=== PATIENT | female | born 1995 | race Caucasian/White ===

== ENCOUNTER 2017-08-30 17:53 | Emergency (ER) | payer OTHER ==
[2017-08-30 18:02] VITALS: BP 142/76; PULSE 97; TEMP 97.6; BMI 27.4
--- NOTE | 2017-08-30 18:03 | PDOC ---
Rapid Medical Evaluation Chief Complaint: Pain, Acute Time Seen by Provider: 08/30/17 18:00 Medical Evaluation: Allergies Allergy/AdvReac Type Severity Reaction Status Date / Time peanut Allergy Verified 04/10/17 20:35 08/30/17 18:02 The patient presents with a chief complaint of: R knee pain since tuesday after bumping it against furniture. States it hurts to walk and is swollen I have performed a brief in-person evaluation of this patient; Pertinent physical exam findings: ambulatory, in no respiratory distress. TTP R knee I have ordered the following: nothing The patient will proceed to the ED for further evaluation.
[2017-08-30] MEDS ORDERED: IBUPROFEN 600 MG TABLET (FP) PO ONE ×2 (18:23→18:32)
--- NOTE | 2017-08-30 18:32 | PDOC ---
History of Present Illness - General Chief Complaint: Pain, Acute Stated Complaint: KNEE INJURY Time Seen by Provider: 08/30/17 18:00 History Source: Patient Exam Limitations: No Limitations - History of Present Illness Initial Comments: 08/30/17 18:25 This is a 22-year-old woman with past medical history of asthma who presents emergency Department with right knee pain for 3 days status post striking her knee on a wooden table. Patient states she was visiting family when she stepped into a sunken porch and struck her knee on the corner of a wooden table immediately below the kneecap. Patient has been walking without difficulty for the past 3 days and has taken Motrin one dose which has not relieved the pain. Patient denies fevers, chills, numbness or tingling to the leg, abdominal pain, chest pain or shortness of breath. Past History - Past Medical History Allergies/Adverse Reactions: Allergies Allergy/AdvReac Type Severity Reaction Status Date / Time peanut Allergy Verified 08/30/17 18:02 Home Medications: Ambulatory Orders NK [No Known Home Medication] 02/07/16 Asthma: Yes COPD: No Other medical history: Eczema - Surgical History Appendectomy: Yes - Immunization History Immunization Up to Date: Yes - Suicide/Smoking/Psychosocial Hx Smoking History: Never smoked Have you smoked in the past 12 months: No Information on smoking cessation initiated: No Hx Alcohol Use: No Drug/Substance Use Hx: No Substance Use Type: None, Marijuana Review of Systems - Review of Systems Able to Perform ROS?: Yes Is the patient limited German proficient: No Constitutional: No: Symptoms Reported HEENTM: No: Symptoms Reported Respiratory: No: Symptoms reported Cardiac (ROS): No: Symptoms Reported ABD/GI: No: Symptoms Reported : No: Symptoms Reported Musculoskeletal: Yes: See HPI Integumentary: No: Symptoms Reported Neurological: No: Symptoms reported *Physical Exam - Vital Signs Last Vital Signs Temp Pulse Resp BP Pulse Ox 97.6 F 97 H 17 142/76 98 08/30/17 18:00 08/30/17 18:00 08/30/17 18:00 08/30/17 18:00 08/30/17 18:00 - Physical Exam General Appearance: Yes: Appropriately Dressed. No: Apparent Distress HEENT: positive: Normal ENT Inspection Neck: positive: Trachea midline, Supple Respiratory/Chest: positive: Lungs Clear, Normal Breath Sounds. negative: Respiratory Distress, Accessory Muscle Use Cardiovascular: positive: Regular Rhythm, Regular Rate. negative: Murmur Vascular Pulses: Dorsalis-Pedis (R): 2+, Doralis-Pedis (L): 2+ Gastrointestinal/Abdominal: positive: Soft. negative: Tender Musculoskeletal: positive: Normal Inspection Extremity: positive: Normal Capillary Refill, Normal Inspection. negative: Normal Range of Motion (Decreased range of motion secondary to pain with flexion of right knee) Integumentary: positive: Normal Color, Dry, Warm Neurologic: positive: Alert, Normal Response, Motor Strength 5/5 ED Treatment Course - RADIOLOGY Radiology Studies Ordered: Category Date Time Status KNEE 3 POS-RIGHT [RAD] Stat Radiology 08/30/17 18:23 Ordered Medical Decision Making - Medical Decision Making 08/30/17 18:29 A/P: 22-year-old female history of asthma now with right knee pain status post direct blow to her of wooden table. Increased pain with flexion of the right knee. Examiner able to fully range right knee. No deformity or crepitus palpated. Patient able to fully extend right knee without difficulty. Tender to palpation to the infrapatellar aspect of the anterior right knee Negative anterior drawer sign Soft tissue injury versus patellar fracture Motrin 600 mg now, x-rays, reassess 08/30/17 19:12 X-rays without fracture, subluxation or dislocation. I discussed the physical exam findings, ancillary test results and final diagnoses with the patient. I answered all of the patient's questions. The patient was satisfied with the care received and felt comfortable with the discharge plan and treatment plan. The patient will call her doctor within 96 hours to arrange follow-up and will return to the Emergency Department with any new, persistent or worsening symptoms. *DC/Admit/Observation/Transfer Diagnosis at time of Disposition: Knee pain, right Qualifiers: Chronicity: acute Qualified Code(s): M25.561 - Pain in right knee - Discharge Dispostion Disposition: HOME Condition at time of disposition: Stable Admit: No - Referrals Referrals: Earl Victor MD [Staff Physician] - - Patient Instructions Additional Instructions: Take Tylenol or Motrin as needed for pain. Follow manufacturers instructions for appropriate dosage. Try not to walk or bear weight on your right knee as much as possible for the next 3 days. Apply ice for 20 minutes and removed for at least 20 minutes before reapplying the ice. You've been given the number for an orthopedist. If symptoms do not resolve within the next 7 days call the orthopedist for further evaluation. Return to emergency department for discoloration of the foot, numbness or tingling to the foot, worsening pain, or any other concerns. Thank you very much for choosing us to provide your emergent healthcare needs. - Post Discharge Activity
== END 2017-08-30 19:33 | disposition home or self-care (01) ==
LOC: JERFT 17:53
DX: M25.561 Pain in right knee (principal); W22.03XA Walked into furniture, initial encounter; Y93.89 Activity, other specified; Y92.098 Other place in other non-institutional residence as the place of occurrence of the external cause; Y99.8 Other external cause status
CPT/HCPCS: 73562-TC-RT-FY; 99281-25

== ENCOUNTER 2018-04-16 16:03 | Emergency (ER) | payer OTHER ==
[2018-04-16 16:08] VITALS: BP 118/61; PULSE 87; TEMP 98.8; BMI 32.9
[2018-04-16] MEDS ORDERED: SODIUM CHLORIDE 1,000 ML IV STA (16:32)
[2018-04-16] MEDS ORDERED: METOCLOPRAMIDE HCL INJECTION 10 MG/2 ML VIAL IVPB ONE (16:33)
[2018-04-16] MEDS ORDERED: KETOROLAC TROMETHAMINE 15 MG/ML VIAL IVPUSH ONE (16:34)
[2018-04-16] MEDS ORDERED: KETOROLAC TROMETHAMINE 15 MG/ML VIAL ONE (16:54)
[2018-04-16] MEDS ORDERED: METOCLOPRAMIDE HCL INJECTION 10 MG/2 ML VIAL ONE (16:54)
--- NOTE | 2018-04-16 18:37 | PDOC ---
History of Present Illness - General Chief Complaint: Headache Stated Complaint: HEAD PAIN Time Seen by Provider: 04/16/18 16:09 History Source: Patient Exam Limitations: No Limitations - History of Present Illness Initial Comments: 04/16/18 18:44 Patient is a 22-year-old female with no past medical history, who presents to the emergency department today for headache. Patient states that she has had a headache for the past 2 weeks. She states that the headache started after hitting her head against a windowsill. She states that the pain fluctuated. On 04/06/18, patient states that the pain became more intense. She was seen by her primary care doctor who ordered a head CT. Head CT was negative for bleeds, ischemia or mass at that time. She presents for reevaluation of her headache. Denies weakness to the extremities, visual changes, photophobia, phonophobia, gait changes. Past History - Travel Traveled outside of the country in the last 30 days: No Close contact w/someone who was outside of country & ill: No - Past Medical History Allergies/Adverse Reactions: Allergies Allergy/AdvReac Type Severity Reaction Status Date / Time peanut Allergy Verified 04/16/18 16:08 Home Medications: Ambulatory Orders Albuterol Sulfate Inhaler - [Ventolin HFA Inhaler -] 1 - 2 inh PO Q4H #1 inhaler 12/26/17 Ibuprofen 800 mg PO TID #30 tablet 04/16/18 Asthma: Yes COPD: No - Surgical History Appendectomy: Yes - Immunization History Immunization Up to Date: Yes - Suicide/Smoking/Psychosocial Hx Smoking History: Current some day smoker Have you smoked in the past 12 months: Yes Number of Cigarettes Smoked Daily: 0 Information on smoking cessation initiated: No Hx Alcohol Use: No Drug/Substance Use Hx: No Substance Use Type: None, Marijuana Review of Systems - Review of Systems Able to Perform ROS?: Yes Comments:: 04/16/18 18:42 CONSTITUTIONAL: Absent: fever, chills, diaphoresis, generalized weakness, malaise, loss of appetite HEENT: Absent: rhinorrhea, nasal congestion, throat pain, throat swelling, difficulty swallowing, mouth swelling, ear pain, eye pain, visual Changes CARDIOVASCULAR: Absent: chest pain, loss of consciousness, palpitations, irregular heart rate, peripheral edema RESPIRATORY: Absent: cough, shortness of breath, dyspnea with exertion, orthopnea, wheezing, stridor, hemoptysis GASTROINTESTINAL: Absent: abdominal pain, abdominal distension, nausea, vomiting, diarrhea, constipation, melena, hematochezia GENITOURINARY: Absent: dysuria, frequency, urgency, hesitancy, hematuria, flank pain, genital pain MUSCULOSKELETAL: Absent: myalgia, arthralgia, joint swelling SKIN: Absent: rash, itching, pallor NEUROLOGIC: Present: headache Absent: focal weakness or paresthesias, dizziness, unsteady gait, seizure, mental status changes, bladder or bowel incontinence PSYCHIATRIC: Absent: anxiety, depression, suicidal or homicidal ideation, hallucinations. Is the patient limited Indian proficient: No *Physical Exam - Vital Signs Last Vital Signs Temp Pulse Resp BP Pulse Ox 98.8 F 87 18 118/61 99 04/16/18 16:05 04/16/18 16:05 04/16/18 16:05 04/16/18 16:05 04/16/18 16:05 - Physical Exam Comments: 04/16/18 18:43 GENERAL: Well developed, well nourished. Awake and alert. No acute distress. HEENT: Normocephalic, atraumatic. PERRLA, EOMI. No conjunctival pallor. Sclera are non- icteric. Moist mucous membranes. Oropharynx is clear. NECK: Supple. Full ROM. No JVD. Carotid pulses 2+ and symmetric, without bruits. No thyromegaly. No lymphadenopathy. CARDIOVASCULAR: Regular rate and rhythm. No murmurs, rubs, or gallops. Distal pulses are 2+ and symmetric. PULMONARY: No evidence of respiratory distress. Lungs clear to auscultation bilaterally. No wheezing, rales or rhonchi. ABDOMINAL: Soft. Non-tender. Non-distended. No rebound or guarding. No organomegaly. Normoactive bowel sounds. MUSCULOSKELETAL Normal range of motion at all joints. No bony deformities or tenderness. No CVA tenderness. EXTREMITIES: No cyanosis. No clubbing. No edema. No calf tenderness. SKIN: Warm and dry. Normal capillary refill. No rashes. No jaundice. NEUROLOGICAL: Alert, awake, appropriate. Cranial nerves 2-12 intact. No deficits to light touch and temperature in face, upper extremities and lower extremities. No motor deficits in the in face, upper extremities and lower extremities. Normoreflexic in the upper and lower extremities. Normal speech. Toes are down- going bilaterally. Gait is normal without ataxia. PSYCHIATRIC: Cooperative. Good eye contact. Appropriate mood and affect. ED Treatment Course - Medications Given in the ED: ED Medications Discontinued Medications Generic Name Dose Route Start Last Admin Trade Name Miki PRN Reason Stop Dose Admin Diphenhydramine HCl 12.5 mg 04/16/18 16:33 04/16/18 17:08 Benadryl Injection - IVPUSH 04/16/18 16:34 12.5 mg ONCE ONE Administration Sodium Chloride 1,000 mls @ 1,000 mls/hr 04/16/18 16:32 04/16/18 16:57 Normal Saline - IV 04/16/18 17:31 1,000 mls/hr ASDIR STA Administration Ketorolac Tromethamine 15 mg 04/16/18 16:34 04/16/18 17:08 Toradol Injection - IVPUSH 04/16/18 16:35 15 mg ONCE ONE Administration Metoclopramide HCl 10 mg 04/16/18 16:33 04/16/18 16:57 Reglan Injection - IVPB 04/16/18 16:34 10 mg ONCE ONE Administration Medical Decision Making - Medical Decision Making 04/16/18 18:09 Pt is a 22 y/o F who presents with 4 days of gradually worsening headache -On exam, pt is neurologically intact with no focal deficits. -CT obtained 04/13/18 is negative for bleed, ischemia, or mass -Migraine vs concussion like symptoms, given hx of trauma two weeks ago -Pt states pain is completely gone with reglan, benadryl and toradol -DC home with neurology referral -Pt understands all dc instructions and all questions were answered. *DC/Admit/Observation/Transfer Diagnosis at time of Disposition: Headache Qualifiers: Headache type: unspecified Headache chronicity pattern: acute headache Intractability: not intractable Qualified Code(s): R51 - Headache - Discharge Dispostion Disposition: HOME Condition at time of disposition: Stable Decision to Admit order: No - Prescriptions Prescriptions: Ibuprofen 800 mg PO TID #30 tablet - Referrals Referrals: Raul Chow MD [Staff Physician] - - Patient Instructions Printed Discharge Instructions: DI for Headache Additional Instructions: You have a headache I suspect this is from hitting your head, you may have a concussion Please take the ibuprofen 800mg every 8 hours as needed for headache Avoid close work (reading, cellphone time) to let your brain recover Get plenty of sleep and drink plenty of fluids Follow up with neurology. A referral has been provided to you Return to the ED for worsening headache, unsteady walking, fevers, or if you have any changes in your symptoms - Post Discharge Activity Forms/Work/School Notes: Back to Work
== END 2018-04-16 19:00 | disposition home or self-care (01) ==
LOC: JERFT 16:03
PROC: 3E0337Z Introduction of Electrolytic and Water Balance Substance into Peripheral Vein, Percutaneous Approach (ICD-10-PCS; principal; 2018-04-16)
PROC: 3E033GC Introduction of Other Therapeutic Substance into Peripheral Vein, Percutaneous Approach (ICD-10-PCS; 2018-04-16)
PROC: 3E033GC Introduction of Other Therapeutic Substance into Peripheral Vein, Percutaneous Approach (ICD-10-PCS; 2018-04-16)
PROC: 3E0333Z Introduction of Anti-inflammatory into Peripheral Vein, Percutaneous Approach (ICD-10-PCS; 2018-04-16)
DX: R51 Headache (principal); Z87.09 Personal history of other diseases of the respiratory system; F17.210 Nicotine dependence, cigarettes, uncomplicated
CPT/HCPCS: 96361; 96374; 96375; 99281-25; J7030

== ENCOUNTER 2018-08-22 19:24 | Emergency (ER) | payer OTHER ==
[2018-08-22 19:42] VITALS: TEMP 98.8; BMI 29.2
[2018-08-22] MEDS ORDERED: IPRATROPIUM BR 0.02% 0.5 MG/2.5 ML VIAL.NEB. NEB ONE (19:45)
[2018-08-22] MEDS ORDERED: ALBUTEROL SO4 0.083% IH SOL 2.5 MG/3 ML VIAL.NEB. NEB ONE (19:45)
[2018-08-22] MEDS ORDERED: DEXAMETHASONE SOD PHOSPHATE 10 MG/1 ML VIAL ONE (19:45)
--- NOTE | 2018-08-22 22:13 | PDOC ---
Attending Attestation - Resident Resident Name: JaquanDionicio - ED Attending Attestation I have performed the following: I have examined & evaluated the patient, The case was reviewed & discussed with the resident, I agree w/resident's findings & plan, Exceptions are as noted - HPI HPI: 08/22/18 22:12 ate a brownie with peanut butter and developed ,tongue itchy Has known peanut allergy - Physicial Exam PE: 08/22/18 22:13 23 yo female has an allergic reaction to peanut butter head ncat Oral exam uvula midline, no edema neck supple lungs cta b/l cvs [id number] abd nontender ext no edema 'skin no hives neuro axox3,ambulatory - Medical Decision Making 08/22/18 22:15 pt is now stable after receiving duoneb and steroids imp peanut allergy plan RX for epi pen 08/22/18 23:30
--- NOTE | 2018-08-22 22:16 | PDOC ---
History of Present Illness - General Chief Complaint: Allergic Reaction Stated Complaint: ALLERGIC REACTION Time Seen by Provider: 08/22/18 21:38 History Source: Patient Exam Limitations: No Limitations - History of Present Illness Initial Comments: 08/22/18 22:51 23 yo F with a peanut allergy with previous anaphylaxis without requiring intubation or hospitalization presents to the emergency department s/p ingestion of a brownie with peanut butter at approximately 6:30 pm. Per the patient, she states she ate a brownie without knowing it contained peanut butter. immediately afterwards, she began experiencing throat itching and SOB. She was given decadron and duoneb, but did not require use of epinephrine. Currently, she feels back to baseline. Denies the following: fever, chills, nausea, vomiting, headache, ears/nose/throat pain, chest pain, SOB, abdominal pain, excessive tearing, urticaria, dysuria, hematuria, diarrhea, hematochezia, and leg pain/swelling. Meds: None Allergies: Peanuts, NKDA Social: Denies tobacco, alcohol, and substance abuse. Past History - Past Medical History Allergies/Adverse Reactions: Allergies Allergy/AdvReac Type Severity Reaction Status Date / Time peanut Allergy Verified 08/22/18 19:41 Home Medications: Ambulatory Orders Albuterol Sulfate Inhaler - [Ventolin HFA Inhaler -] 1 - 2 inh PO Q4H #1 inhaler 12/26/17 Ibuprofen 800 mg PO TID #30 tablet 04/16/18 Epinephrine [Epipen 2-Rubin] 0.3 mg IJ ASDIR #1 kit 08/22/18 Asthma: Yes COPD: No - Surgical History Appendectomy: Yes - Immunization History Immunization Up to Date: Yes - Suicide/Smoking/Psychosocial Hx Smoking History: Never smoked Have you smoked in the past 12 months: No Number of Cigarettes Smoked Daily: 0 Information on smoking cessation initiated: No Hx Alcohol Use: Yes (Social) Drug/Substance Use Hx: No Substance Use Type: None, Marijuana Review of Systems - Review of Systems Able to Perform ROS?: Yes Is the patient limited Paraguayan proficient: No Constitutional: No: Chills, Diaphoresis, Fever, Weakness HEENTM: No: Eye Pain, Ear Pain, Nose Pain, Throat Pain, Mouth Pain Respiratory: No: Cough, Shortness of Breath Cardiac (ROS): No: Chest Pain, Lightheadedness, Palpitations, Syncope, Chest Tightness ABD/GI: No: Constipated, Diarrhea, Nausea, Vomiting : No: Burning, Dysuria, Hematuria, Incontinence Musculoskeletal: No: Back Pain, Joint Pain, Neck Pain Integumentary: No: Bruising, Erythema, Lesions, Pruritus, Rash Neurological: No: Headache, Numbness, Tremors, Dizziness Psychiatric: No: Change in Appetite Endocrine: No: Unexplained Weight Gain Hematologic/Lymphatic: No: Anemia *Physical Exam - Vital Signs Last Vital Signs Temp Pulse Resp BP Pulse Ox 98.8 F 114 H 26 H 125/65 99 08/22/18 19:24 08/22/18 19:24 08/22/18 19:24 08/22/18 19:24 08/22/18 20:10 - Physical Exam General Appearance: Yes: Nourished, Appropriately Dressed. No: Apparent Distress, Intoxicated HEENT: positive: EOMI, DAR, Normal ENT Inspection, Normal Voice, Symmetrical, TMs Normal, Pharynx Normal, Hearing Grossly Normal. negative: Pale Conjunctivae , Scleral Icterus (R), Scleral Icterus (L), Muffled/Hoarse voice, Pharyngeal Erythema, Tonsillar Exudate, Tonsillar Erythema, Excessive drooling Neck: positive: Trachea midline, Supple. negative: Tender, Stridor, Lymphadenopathy (R), Lymphadenopathy (L), Tender lateral, Tender midline Respiratory/Chest: positive: Lungs Clear, Normal Breath Sounds. negative: Chest Tender, Respiratory Distress, Accessory Muscle Use, Crackles, Rales, Rhonchi, Stridor, Wheezing Cardiovascular: positive: Regular Rhythm, Regular Rate, S1, S2. negative: Systolic Murmur Gastrointestinal/Abdominal: positive: Normal Bowel Sounds, Flat, Soft. negative : Tender, Rebound Lymphatic: negative: Adenopathy Musculoskeletal: positive: Normal Inspection. negative: CVA Tenderness, Vertebral Tenderness Extremity: positive: Normal Capillary Refill, Normal Inspection, Normal Range of Motion. negative: Tender, Swelling, Calf Tenderness Integumentary: positive: Normal Color, Dry, Warm. negative: Hives, Petechiae, Swelling, Ecchymosis Neurologic: positive: director industrial II-XII NML intact, Fully Oriented, Alert, Normal Mood/ Affect, Normal Response, Motor Strength 5/5. negative: Facial Droop, Sensory Deficit Moderate Sedation - Procedure Monitoring Vital Signs: Procedure Monitoring Vital Signs Temperature 98.8 F 08/22/18 19:24 Pulse Rate 114 H 08/22/18 19:24 Respiratory Rate 26 H 08/22/18 19:24 Blood Pressure 125/65 08/22/18 19:24 O2 Sat by Pulse Oximetry (%) 99 08/22/18 20:10 Medical Decision Making - Medical Decision Making 08/23/18 10:19 23 yo F with a peanut allergy with previous anaphylaxis without requiring intubation or hospitalization presents to the emergency department s/p ingestion of a brownie with peanut butter at approximately 6:30 pm. Initial vitals: Initial Vital Signs Temp Pulse Resp BP Pulse Ox 98.8 F 114 H 26 H 125/65 100 08/22/18 19:24 08/22/18 19:24 08/22/18 19:24 08/22/18 19:24 08/22/18 19:24 work up: patient was given decadron and duoneb. significant improvement in symptoms. patient did not use a home dose of epinephrine and was not given this in the ambulance. patient was prescribed a home prescription of epinephrine. patient given return precautions. well appearing at discharge and able to ambulate on their own volition. Dispo: Discharge *DC/Admit/Observation/Transfer Diagnosis at time of Disposition: Allergic reaction Qualifiers: Encounter type: initial encounter Qualified Code(s): T78.40XA - Allergy, unspecified, initial encounter - Discharge Dispostion Disposition: HOME Condition at time of disposition: Fair Decision to Admit order: No - Prescriptions Prescriptions: Epinephrine [Epipen 2-Rubin] 0.3 mg IJ ASDIR #1 kit - Referrals Referrals: [facility] [place] [facility] [place] [Provider Group] - Patient Instructions Printed Discharge Instructions: Anaphylaxis Additional Instructions: you were seen in the emergency department for the evaluation of your allergic reaction. after steroids and breathing treatment, your symptoms resolved. please follow up with your doctor within 1 week after discharge for follow up care and management. please go to the one referred to you. an epi pen prescription was sent to your pharmacy at [facility] on . please return to the emergency department if you have worsening symptoms, new concerning symptoms such as unable to breathe, nausea, vomiting, and diarrhea. thank you. - Post Discharge Activity Forms/Work/School Notes: Back to Work
[2018-08-22] MEDS ORDERED: SODIUM CHLORIDE 1,000 ML IV STA (22:51)
[2018-08-22 22:56] VITALS: BP 118/61
[2018-08-22 23:49] VITALS: PULSE 89
== END 2018-08-22 23:49 | disposition home or self-care (01) ==
LOC: JER 19:24
PROC: 3E0337Z Introduction of Electrolytic and Water Balance Substance into Peripheral Vein, Percutaneous Approach (ICD-10-PCS; principal; 2018-08-22)
DX: T78.1XXA Other adverse food reactions, not elsewhere classified, initial encounter (principal); L29.8 Other pruritus; Z91.010 Allergy to peanuts
CPT/HCPCS: 96360; 99282-25; J7030

== ENCOUNTER 2019-04-13 15:48 | Emergency (ER) | payer OTHER ==
--- NOTE | 2019-04-13 16:00 | PDOC ---
Rapid Medical Evaluation Time Seen by Provider: 04/13/19 15:57 Medical Evaluation: Allergies Allergy/AdvReac Type Severity Reaction Status Date / Time peanut Allergy Verified 04/13/19 15:58 04/13/19 15:58 Pt c/o: fell last night after slipping on floor now with left leg pain, back pain and upper neck pain, No loc, took motrin 200mg with min relief, no nausea or visual complaints Pt on brief exam: vss, no midline tenderness, ambulatory Pt ordered for: none Pt proceed to the ED Discharge Disposition - Diagnosis Head injury Fall Qualifiers: Encounter type: initial encounter Qualified Code(s): W19.XXXA - Unspecified fall, initial encounter - Discharge Dispostion Disposition: HOME Condition at time of disposition: Stable - Referrals Referrals: Layne Rangel [Primary Care Provider] - - Patient Instructions Printed Discharge Instructions: Concussion Additional Instructions: You most likely suffered a mild head injury. But it is possible that you might have a mild concussion as well, which will gradually improve on its own. For the next several days, rest your body,get plenty of sleep and avoid heavy exercise or too much physical activity. Also avoid alcohol while symptomatic. For pain, take Tylenol or ibuprofen. If you start having vomiting, severe headache, seizures, trouble walking or talking visual changes, feeling weak or numb in your body or loose control of your bowels or bladder, return to ED immediately - Post Discharge Activity Work/School Note: Back to Work
[2019-04-13 16:02] VITALS: BP 110/71; PULSE 89; TEMP 98
--- NOTE | 2019-04-13 17:00 | PDOC ---
History of Present Illness - General Chief Complaint: Injury Stated Complaint: FALL/HEAD/BACK PAIN Time Seen by Provider: 04/13/19 15:57 History Source: Patient - History of Present Illness Timing/Duration: reports: other (last night) Severity: Yes: moderate Past History - Past Medical History Allergies/Adverse Reactions: Allergies Allergy/AdvReac Type Severity Reaction Status Date / Time peanut Allergy Verified 04/13/19 15:58 Home Medications: Ambulatory Orders Albuterol Sulfate Inhaler - [Ventolin HFA Inhaler -] 1 - 2 inh PO Q4H #1 inhaler 12/26/17 Epinephrine [Epipen 2-Rubin] 0.3 mg IJ ASDIR #1 kit 08/22/18 Crisaborole [Eucrisa] 1 applic TD BID 04/13/19 Triamcinolone 0.025% Cream [Aristocort] 0 gm TP BID 04/13/19 Asthma: Yes COPD: No - Surgical History Appendectomy: Yes - Immunization History Immunization Up to Date: Yes - Psycho Social/Smoking Cessation Hx Smoking History: Unknown if ever smoked Have you smoked in the past 12 months: No Number of Cigarettes Smoked Daily: 0 Hx Alcohol Use: Yes (Social) Drug/Substance Use Hx: No Substance Use Type: None, Marijuana Review of Systems - Review of Systems HEENTM: No: Blurred Vision ABD/GI: No: Nausea, Vomiting Neurological: Yes: Headache. 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 Patient states she slipped and fell at work last night striking back of head. No LOC. Has had pain to occiput and intermittent blurry vision since. Denies nausea vomiting, dizziness, numbness, tingling, focal weakness or memory issues. Denies neck pain see exam Possible concussion s/p head injury Renata uncomfortable but stable w/ no focal deficits -will get CTH based on sxs 04/13/19 18:50 CTH read as negative. Pt stable for dc w/ concussions precautions. Reasons to return to ER d/w pt Discharge - Discharge Information Problems reviewed: Yes Clinical Impression/Diagnosis: Fall Qualifiers: Encounter type: initial encounter Qualified Code(s): W19.XXXA - Unspecified fall, initial encounter Head injury Qualifiers: Encounter type: initial encounter Qualified Code(s): S09.90XA - Unspecified injury of head, initial encounter Condition: Stable Disposition: HOME - Follow up/Referral Referrals: Layne Rangel [Primary Care Provider] - - Patient Discharge Instructions Patient Printed Discharge Instructions: Concussion Additional Instructions: You most likely suffered a mild head injury. But it is possible that you might have a mild concussion as well, which will gradually improve on its own. For the next several days, rest your body,get plenty of sleep and avoid heavy exercise or too much physical activity. Also avoid alcohol while symptomatic. For pain, take Tylenol or ibuprofen. If you start having vomiting, severe headache, seizures, trouble walking or talking visual changes, feeling weak or numb in your body or loose control of your bowels or bladder, return to ED immediately - Post Discharge Activity
== END 2019-04-13 18:52 | disposition home or self-care (01) ==
LOC: JERFT 15:48
DX: S09.8XXA Other specified injuries of head, initial encounter (principal); W01.0XXA Fall on same level from slipping, tripping and stumbling without subsequent striking against object, initial encounter; Y93.89 Activity, other specified; Y92.512 Supermarket, store or market as the place of occurrence of the external cause; Y99.0 Civilian activity done for income or pay; J45.909 Unspecified asthma, uncomplicated; Z91.010 Allergy to peanuts
CPT/HCPCS: 70450-TC; 84703; 99281-25

== ENCOUNTER 2019-06-14 17:17 | Emergency (ER) | payer OTHER ==
[2019-06-14 17:41] VITALS: BP 119/67; PULSE 98; TEMP 98; BMI 28.3
--- NOTE | 2019-06-14 17:42 | PDOC ---
Rapid Medical Evaluation Chief Complaint: HIV Testing Time Seen by Provider: 06/14/19 17:41 Medical Evaluation: Allergies Allergy/AdvReac Type Severity Reaction Status Date / Time peanut Allergy Verified 04/13/19 15:58 Vital Signs Temp Pulse Resp BP Pulse Ox 98 F 98 H 18 119/67 100 06/14/19 17:38 06/14/19 17:38 06/14/19 17:38 06/14/19 17:38 06/14/19 17:38 06/14/19 17:41 I have performed a brief in-person evaluation of this patient. The patient presents with a chief complaint of: STD testing. Denies any symptoms. pt wishes not to be tested for HIV Pertinent physical exam findings: A&O x 3 in NAD I have ordered the following: hcg, Chlamydia, Gono testing The patient will proceed to the ED for further evaluation. Discharge Disposition - Diagnosis Screening for STD (sexually transmitted disease) - Discharge Dispostion Condition at time of disposition: Stable - Referrals - Patient Instructions - Post Discharge Activity
--- NOTE | 2019-06-14 18:54 | PDOC ---
History of Present Illness - General Chief Complaint: HIV Testing Stated Complaint: TO BE SEEN, STD TESTING Time Seen by Provider: 06/14/19 17:41 History Source: Patient Exam Limitations: Clinical Condition - History of Present Illness Initial Comments: 06/14/19 18:51 Patient with no significant past medical history LMP 3 months ago due to on Depo -Provera presents for STD testing. Patient now willing to wait for blood work and will rather do gonorrhea and chlamydia testing. Denies any symptoms Is this a multiple visit Asthma Patient?: No Timing/Duration: momentarily Past History - Past Medical History Allergies/Adverse Reactions: Allergies Allergy/AdvReac Type Severity Reaction Status Date / Time peanut Allergy Verified 06/14/19 17:41 Home Medications: Ambulatory Orders Albuterol Sulfate Inhaler - [Ventolin HFA Inhaler -] 1 - 2 inh PO Q4H #1 inhaler 12/26/17 Epinephrine [Epipen 2-Rubin] 0.3 mg IJ ASDIR #1 kit 08/22/18 Crisaborole [Eucrisa] 1 applic TD BID 04/13/19 Triamcinolone 0.025% Cream [Aristocort] 0 gm TP BID 04/13/19 Asthma: Yes COPD: No - Surgical History Appendectomy: Yes - Immunization History Immunization Up to Date: Yes - Psycho Social/Smoking Cessation Hx Smoking History: Never smoked Have you smoked in the past 12 months: No Number of Cigarettes Smoked Daily: 0 Hx Alcohol Use: Yes (Social) Drug/Substance Use Hx: No Substance Use Type: None, Marijuana Review of Systems - Review of Systems Able to Perform ROS?: Yes Is the patient limited Danish proficient: No Constitutional: No: Chills, Fever, Malaise, Weakness HEENTM: No: Symptoms Reported Respiratory: No: Symptoms reported, See HPI, Cough, Orthopnea, Shortness of Breath, SOB with Exertion, SOB at Rest, Stridor, Wheezing, Productive cough, Hemoptysis, Other Cardiac (ROS): No: Symptoms Reported, See HPI, Chest Pain, Edema, Irregular Heart Rate, Lightheadedness, Palpitations, Syncope, Chest Tightness, Other ABD/GI: No: Symptoms Reported, Nausea, Vomiting : No: Symptoms Reported, Burning, Discharge, Frequency, Urgency All Other Systems: Reviewed and Negative *Physical Exam - Vital Signs Last Vital Signs Temp Pulse Resp BP Pulse Ox 98 F 98 H 18 119/67 100 06/14/19 17:38 06/14/19 17:38 06/14/19 17:38 06/14/19 17:38 06/14/19 17:38 - Physical Exam General Appearance: Yes: Nourished, Appropriately Dressed. No: Apparent Distress HEENT: positive: Normal ENT Inspection Respiratory/Chest: negative: Respiratory Distress, Accessory Muscle Use Musculoskeletal: positive: Normal Inspection Extremity: positive: Normal Inspection Integumentary: positive: Normal Color Neurologic: positive: Fully Oriented, Alert, Normal Mood/Affect, Normal Response Medical Decision Making - Medical Decision Making 06/14/19 18:52 Patient with no medical history present for STD testing of gonorrhea and Chlamydia testing. Reported no symptoms. Patient would rather not do HIV because she does not want to wait for results and will do testing when she follow-up with her primary care. Gonorrhea and chlamydia test sent. Patient stable for discharge and will be called back with results Discharge - Discharge Information Problems reviewed: Yes Clinical Impression/Diagnosis: Screening for STD (sexually transmitted disease) Condition: Stable Disposition: HOME - Admission No - Follow up/Referral - Patient Discharge Instructions Patient Printed Discharge Instructions: Facts About Sexually Transmitted Infections Additional Instructions: You will be contacted with the gonorrhea and chlamydia test by next week. Follow-up with your RAILROAD OPERATOR - Post Discharge Activity
== END 2019-06-14 19:01 | disposition home or self-care (01) ==
LOC: JERFT 17:17
DX: Z11.3 Encounter for screening for infections with a predominantly sexual mode of transmission (principal); Z87.09 Personal history of other diseases of the respiratory system
CPT/HCPCS: 36415; 84703; 87491; 87591; 99281-25

== ENCOUNTER 2019-07-23 12:51 | Day surgery (SDC) | payer OTHER ==
[2019-07-23 13:06] VITALS: BMI 29.7
--- NOTE | 2019-07-23 13:06 | PDOC ---
Rapid Medical Evaluation Chief Complaint: Pain Time Seen by Provider: 07/23/19 13:04 Medical Evaluation: Allergies Allergy/AdvReac Type Severity Reaction Status Date / Time peanut Allergy Verified 07/23/19 13:02 07/23/19 13:04 This patient had rapid medical evaluation in triage cc:abdominal pain x 2-3 weeks HPI: patient reports abdominal pain x 2-3 weeks states vomited last night. Reports nausea at present. PE: NAD unlabored breathing abdomen soft with generalize tenderness, + bowel sounds Orders: labs This patient will proceed to ed for further evaluation. Discharge Disposition - Diagnosis Abdominal pain - Referrals - Patient Instructions - Post Discharge Activity
[2019-07-23] MEDS ORDERED: SODIUM CHLORIDE 1,000 ML IV STA (13:44)
[2019-07-23] MEDS ORDERED: ACETAMINOPHEN 1000 MG/100 ML VIAL (NON FORMULARY) IVPB ONE (13:44)
[2019-07-23] MEDS ORDERED: ONDANSETRON 4 MG/2 ML VIAL IVPUSH ONE (13:44)
[2019-07-23] MEDS ORDERED: ACETAMINOPHEN INJECTION 100 ML IVPB ONE (13:49)
[2019-07-23] MEDS ORDERED: ONDANSETRON 4 MG/2 ML VIAL ONE (13:49)
[2019-07-23 14:50] LABS: BASO % 0.3 % (0-2.0); EOS % 2.7 % (0-4.5); HEMATOCRIT 40.1 % (32.4-45.2); HEMOGLOBIN 13.6 GM/dL (10.7-15.3); LYMPH % 15.6 % (8-40); MCH 29.8 pg (25.7-33.7); MCHC 33.8 g/dl (32.0-36.0); MEAN PLT VOLUME 7.1 fl (7.5-11.1); NEUT % 76.4 % (42.8-82.8); PLATELET COUNT 326 K/MM3 (134-434); RBC 4.56 M/mm3 (3.60-5.2); RDW 13.1 % (11.6-15.6); WHITE BLOOD COUNT 7.1 K/mm3 (4.0-10.0)
[2019-07-23 14:56] LABS: EPI CELLS 16.4 /HPF (0-5/HPF); HYALINE CASTS 19 /lpf (0-8); URINE APPEARANCE CLOUDY; URINE BACTERIA 563.4 /hpf (NEGATIVE); URINE BILIRUBIN NEGATIVE (NEGATIVE); URINE COLOR YELLOW; URINE GLUCOSE (UA) NEGATIVE (NEGATIVE); URINE KETONE 1+ (NEGATIVE); URINE LEUK ESTERASE 1+ (NEGATIVE); URINE NITRITE NEGATIVE (NEGATIVE); URINE PROTEIN NEGATIVE (NEGATIVE); URINE RBC 2 /hpf (0-4); URINE WBC 26 /hpf (0-5)
[2019-07-23 15:24] LABS: ALBUMIN 3.8 g/dl (3.4-5.0); BILIRUBIN,TOTAL 1.4 mg/dL (0.2-1); BLOOD UREA NITROGEN 5.7 mg/dL (7-18); CREATININE 0.6 mg/dL (0.55-1.3); POTASSIUM 3.4 mmol/L (3.5-5.1); TOT PROT 7.4 g/dl (6.4-8.2)
--- NOTE | 2019-07-23 18:07 | PDOC ---
History of Present Illness - General History Source: Patient Exam Limitations: No Limitations <Lilian Mckeon - Last Filed: 07/23/19 18:10> <Maria L Aguirre - Last Filed: 07/27/19 10:26> - General Chief Complaint: Pain Stated Complaint: ABD PAIN/VOMITING Time Seen by Provider: 07/23/19 13:04 Past History - Travel Traveled outside of the country in the last 30 days: No Close contact w/someone who was outside of country & ill: No - Past Medical History Asthma: Yes COPD: No - Surgical History Appendectomy: Yes - Immunization History Immunization Up to Date: Yes - Psycho Social/Smoking Cessation Hx Smoking History: Never smoked Have you smoked in the past 12 months: No Number of Cigarettes Smoked Daily: 0 Information on smoking cessation initiated: No Hx Alcohol Use: No Drug/Substance Use Hx: No Substance Use Type: None, Marijuana <Lilian Mckeon - Last Filed: 07/23/19 18:10> <Maria L Aguirre - Last Filed: 07/27/19 10:26> - Past Medical History Allergies/Adverse Reactions: Allergies Allergy/AdvReac Type Severity Reaction Status Date / Time peanut Allergy Verified 07/24/19 02:31 Home Medications: Ambulatory Orders Acetaminophen [Tylenol] 650 mg PO Q6H PRN #20 capsule MDD 5 07/23/19 Ibuprofen 600 mg PO Q6H PRN #20 tablet 07/23/19 Review of Systems - Review of Systems Able to Perform ROS?: Yes Comments:: 07/23/19 18:11 CONSTITUTIONAL: Absent: fever, chills, diaphoresis, generalized weakness, malaise, loss of appetite HEENT: Absent: rhinorrhea, nasal congestion, throat pain, throat swelling, difficulty swallowing, mouth swelling, ear pain, eye pain, visual Changes CARDIOVASCULAR: Absent: chest pain, loss of consciousness, palpitations, irregular heart rate, peripheral edema RESPIRATORY: Absent: cough, shortness of breath, dyspnea with exertion, orthopnea, wheezing, stridor, hemoptysis GASTROINTESTINAL: Present: Abdominal pain Absent: abdominal distension, nausea, vomiting, diarrhea, constipation, melena, hematochezia GENITOURINARY: Absent: dysuria, frequency, urgency, hesitancy, hematuria, flank pain, genital pain MUSCULOSKELETAL: Absent: myalgia, arthralgia, joint swelling SKIN: Absent: rash, itching, pallor HEMATOLOGIC/IMMUNOLOGIC: Absent: easy bleeding, easy bruising, lymphadenopathy, frequent infections ENDOCRINE: Absent: unexplained weight gain, unexplained weight loss, heat intolerance, cold intolerance NEUROLOGIC: Absent: headache, focal weakness or paresthesias, dizziness, unsteady gait, seizure, mental status changes, bladder or bowel incontinence PSYCHIATRIC: Absent: anxiety, depression, suicidal or homicidal ideation, hallucinations. Is the patient limited Croatian proficient: No <MaggymelvinaCintia palmerecca - Last Filed: 07/23/19 18:10> *Physical Exam - Vital Signs Last Vital Signs Temp Pulse Resp BP Pulse Ox 99.4 F 87 16 116/84 100 07/23/19 13:02 07/23/19 13:02 07/23/19 13:02 07/23/19 13:02 07/23/19 13:02 - Physical Exam 07/23/19 18:12 GENERAL: Well developed, well nourished. Awake and alert. No acute distress. HEENT: Normocephalic, atraumatic. PERRLA, EOMI. No conjunctival pallor. Sclera are non- icteric. Moist mucous membranes. NECK: Supple. Full ROM. CARDIOVASCULAR: Regular rate and rhythm. No murmurs, rubs, or gallops. Distal pulses are 2+ and symmetric. PULMONARY: No evidence of respiratory distress. Lungs clear to auscultation bilaterally. No wheezing, rales or rhonchi. ABDOMINAL: Tenderness palpation of the left lower quadrant, left upper quadrant and suprapubic region. Soft. Non-tender. Non-distended. No rebound or guarding. No organomegaly. Normoactive bowel sounds. MUSCULOSKELETAL Normal range of motion at all joints. No bony deformities or tenderness. No CVA tenderness. EXTREMITIES: No cyanosis. No clubbing. No edema. No calf tenderness. SKIN: Warm and dry. Normal capillary refill. No rashes. No jaundice. NEUROLOGICAL: Alert, awake, appropriate. Cranial nerves 2-12 intact. No deficits to light touch and temperature in face, upper extremities and lower extremities. No motor deficits in the in face, upper extremities and lower extremities. Normoreflexic in the upper and lower extremities. Normal speech. Toes are down- going bilaterally. Gait is normal without ataxia. PSYCHIATRIC: Cooperative. Good eye contact. Appropriate mood and affect. <Lilian Mckeon - Last Filed: 07/23/19 18:10> - Vital Signs Last Vital Signs Temp Pulse Resp BP Pulse Ox 98.5 F 86 14 120/69 100 07/23/19 22:15 07/23/19 22:15 07/23/19 22:15 07/23/19 22:15 07/23/19 22:15 <Maria L Aguirre - Last Filed: 07/27/19 10:26> ED Treatment Course - LABORATORY CBC & Chemistry Diagram: 07/23/19 13:33 07/23/19 13:33 - ADDITIONAL ORDERS Additional order review: Laboratory Results 07/23/19 07/23/19 07/23/19 13:33 13:33 13:33 Sodium 139 Potassium 3.4 L Chloride 106 Carbon Dioxide 27 Anion Gap 6 L BUN 5.7 L Creatinine 0.6 Est GFR (CKD-EPI)AfAm 149.95 Est GFR (CKD-EPI)NonAf 129.38 Random Glucose 85 Calcium 9.0 Total Bilirubin 1.4 H AST 16 ALT 20 Alkaline Phosphatase 71 Total Protein 7.4 Albumin 3.8 Beta HCG, Quant 805.3 Urine Color Yellow Urine Appearance Cloudy Urine pH 6.0 Ur Specific [place] 1.019 Urine Protein Negative Urine Glucose (UA) Negative Urine Ketones 1+ H Urine Blood Negative Urine Nitrite Negative Urine Bilirubin Negative Urine Urobilinogen 1.0 Ur Leukocyte Esterase 1+ H Urine WBC (Auto) 26 Urine RBC (Auto) 2 Urine Casts (Auto) 19 U Epithel Cells (Auto) 16.4 Urine Bacteria (Auto) 563.4 Urine HCG, Qual Positive 07/23/19 13:33 RBC 4.56 MCV 88.0 MCHC 33.8 RDW 13.1 MPV 7.1 L Neutrophils % 76.4 D Lymphocytes % 15.6 D Monocytes % 5.0 Eosinophils % 2.7 Basophils % 0.3 - RADIOLOGY Radiology Studies Ordered: Category Date Time Status TRANSVAGINAL US PREG [US] Stat Ultrasound 07/23/19 15:11 Completed - Medications Given in the ED: ED Medications Discontinued Medications Generic Name Dose Route Start Last Admin Trade Name Freq PRN Reason Stop Dose Admin Acetaminophen 1,000 mg 07/23/19 13:44 07/23/19 14:14 Ofirmev Injection - IVPB 07/23/19 13:45 1,000 mg ONCE ONE Administration Sodium Chloride 1,000 mls @ 1,000 mls/hr 07/23/19 13:44 07/23/19 14:14 Normal Saline - IV 07/23/19 14:43 1,000 mls/hr ASDIR STA Administration Ondansetron HCl 4 mg 07/23/19 13:44 07/23/19 14:15 Zofran Injection IVPUSH 07/23/19 13:45 4 mg ONCE ONE Administration <Lilian Mckeon - Last Filed: 07/23/19 18:10> - LABORATORY CBC & Chemistry Diagram: 07/23/19 18:07 07/23/19 13:33 - ADDITIONAL ORDERS Additional order review: 07/23/19 13:33 Urine Culture - Final Urine - Urine Clean Catch Diphtheroid/Corynebacterium 07/23/19 07/23/19 18:07 13:33 RBC 4.59 4.56 MCV 88.4 88.0 MCHC 33.9 33.8 RDW 12.9 13.1 MPV 7.1 L 7.1 L Neutrophils % 78.7 76.4 D Lymphocytes % 14.0 15.6 D Monocytes % 4.8 5.0 Eosinophils % 1.9 2.7 Basophils % 0.6 0.3 - Medications Given in the ED: ED Medications Discontinued Medications Generic Name Dose Route Start Last Admin Trade Name Freq PRN Reason Stop Dose Admin Acetaminophen 1,000 mg 07/23/19 13:44 07/23/19 14:14 Ofirmev Injection - IVPB 07/23/19 13:45 1,000 mg ONCE ONE Administration Fentanyl 50 mcg 07/23/19 21:30 07/23/19 21:33 Sublimaze Injection - IVPUSH 50 mcg [id number] PRN Administration PAIN-PACU ORDER X 4 DOSES ONLY Sodium Chloride 1,000 mls @ 1,000 mls/hr 07/23/19 13:44 07/23/19 14:14 Normal Saline - IV 07/23/19 14:43 1,000 mls/hr ASDIR STA Administration Ondansetron HCl 4 mg 07/23/19 13:44 07/23/19 14:15 Zofran Injection IVPUSH 07/23/19 13:45 4 mg ONCE ONE Administration Oxycodone HCl 10 mg 07/23/19 22:00 07/23/19 22:52 Roxicodone - PO 10 mg Q6H PRN Administration PAIN LEVEL 6-10 <Maria L Aguirre - Last Filed: 07/27/19 10:26> Medical Decision Making - Medical Decision Making 07/23/19 18:13 The patient is a 24-year-old female with past medical history of appendectomy, presents to the ER today for left lower quadrant pain for approximately 2 to 3 weeks. The patient states that the pain is been increasing over the past 2 weeks. She notes that the pain is sharp and that it hurts to touch her stomach. She denies flulike symptoms, nausea, vomiting and diarrhea. She states her last menstrual cycle was May 18. She states she does not get her cycle regularly as she is on the Depo shot. A/P: Ectopic On exam patient with tenderness palpation of the left lower quadrant, suprapubic region and left upper quadrant. There is rebound and guarding. Pain is out of proportion to exam. Basic labs and urine were ordered. Patient was found to have a positive urine . Beta hCG ordered and is now at 800. Pt denies missing any depo shots. Transvaginal ultrasound ordered, shows a left adnexal mass at 5.3 x 4.7 cm which represents an ectopic . There is also complex free fluid suggestive of hemoperitoneum. Type and screen, PT/INR, repeat CBC ordered. Second IV line started. Consulted with Dr. Archer; [facility] Last oral intake: water at 12:00pm ECONOMICS ANALYST: Dr. Trent <Lilian Mckeon - Last Filed: 07/23/19 18:10> - Medical Decision Making I reviewed the case with the mid-level practitioner and agree with the mid- level practitioner's assessment, diagnosis and disposition. <Maria L Aguirre - Last Filed: 07/27/19 10:26> Discharge - Discharge Information Problems reviewed: Yes - Admission Yes <Lilian Mckeon - Last Filed: 07/23/19 18:10> <Maria L Aguirre - Last Filed: 07/27/19 10:26> - Discharge Information Clinical Impression/Diagnosis: Ectopic Qualifiers: Location of ectopic : tubal Intrauterine status: without intrauterine Laterality: left Qualified Code(s): O00.102 - Left tubal without intrauterine Condition: Stable Disposition: HOME
--- NOTE | 2019-07-23 18:10 | PDOC ---
History of Present Illness - General Chief Complaint: Pain Stated Complaint: ABD PAIN/VOMITING Time Seen by Provider: 07/23/19 13:04 History Source: Patient Exam Limitations: No Limitations Past History - Travel Traveled outside of the country in the last 30 days: No Close contact w/someone who was outside of country & ill: No - Past Medical History Allergies/Adverse Reactions: Allergies Allergy/AdvReac Type Severity Reaction Status Date / Time peanut Allergy Verified 07/23/19 13:02 Home Medications: Ambulatory Orders Albuterol Sulfate Inhaler - [Ventolin HFA Inhaler -] 1 - 2 inh PO Q4H #1 inhaler 12/26/17 Epinephrine [Epipen 2-Rubin] 0.3 mg IJ ASDIR #1 kit 08/22/18 Crisaborole [Eucrisa] 1 applic TD BID 04/13/19 Triamcinolone 0.025% Cream [Aristocort] 0 gm TP BID 04/13/19 Asthma: Yes COPD: No - Surgical History Appendectomy: Yes - Immunization History Immunization Up to Date: Yes - Psycho Social/Smoking Cessation Hx Smoking History: Never smoked Have you smoked in the past 12 months: No Number of Cigarettes Smoked Daily: 0 Information on smoking cessation initiated: No Hx Alcohol Use: No Drug/Substance Use Hx: No Substance Use Type: None, Marijuana Review of Systems - Review of Systems Able to Perform ROS?: Yes Comments:: 07/23/19 17:15 CONSTITUTIONAL: Absent: fever, chills, diaphoresis, generalized weakness, malaise, loss of appetite HEENT: Absent: rhinorrhea, nasal congestion, throat pain, throat swelling, difficulty swallowing, mouth swelling, ear pain, eye pain, visual Changes CARDIOVASCULAR: Absent: chest pain, loss of consciousness, palpitations, irregular heart rate, peripheral edema RESPIRATORY: Absent: cough, shortness of breath, dyspnea with exertion, orthopnea, wheezing, stridor, hemoptysis GASTROINTESTINAL: Present: abdominal painAbsent: abdominal pain, abdominal distension, nausea, vomiting, diarrhea, constipation, melena, hematochezia GENITOURINARY: Absent: dysuria, frequency, urgency, hesitancy, hematuria, flank pain, genital pain MUSCULOSKELETAL: Absent: myalgia, arthralgia, joint swelling SKIN: Absent: rash, itching, pallor HEMATOLOGIC/IMMUNOLOGIC: Absent: easy bleeding, easy bruising, lymphadenopathy, frequent infections ENDOCRINE: Absent: unexplained weight gain, unexplained weight loss, heat intolerance, cold intolerance NEUROLOGIC: Absent: headache, focal weakness or paresthesias, dizziness, unsteady gait, seizure, mental status changes, bladder or bowel incontinence PSYCHIATRIC: Absent: anxiety, depression, suicidal or homicidal ideation, hallucinations. Is the patient limited Kinyarwanda proficient: No *Physical Exam - Vital Signs Last Vital Signs Temp Pulse Resp BP Pulse Ox 99.4 F 87 16 116/84 100 07/23/19 13:02 07/23/19 13:02 07/23/19 13:02 07/23/19 13:02 07/23/19 13:02 ED Treatment Course - LABORATORY CBC & Chemistry Diagram: 07/23/19 13:33 07/23/19 13:33 - ADDITIONAL ORDERS Additional order review: Laboratory Results 07/23/19 07/23/19 07/23/19 13:33 13:33 13:33 Sodium 139 Potassium 3.4 L Chloride 106 Carbon Dioxide 27 Anion Gap 6 L BUN 5.7 L Creatinine 0.6 Est GFR (CKD-EPI)AfAm 149.95 Est GFR (CKD-EPI)NonAf 129.38 Random Glucose 85 Calcium 9.0 Total Bilirubin 1.4 H AST 16 ALT 20 Alkaline Phosphatase 71 Total Protein 7.4 Albumin 3.8 Beta HCG, Quant 805.3 Urine Color Yellow Urine Appearance Cloudy Urine pH 6.0 Ur Specific [place] 1.019 Urine Protein Negative Urine Glucose (UA) Negative Urine Ketones 1+ H Urine Blood Negative Urine Nitrite Negative Urine Bilirubin Negative Urine Urobilinogen 1.0 Ur Leukocyte Esterase 1+ H Urine WBC (Auto) 26 Urine RBC (Auto) 2 Urine Casts (Auto) 19 U Epithel Cells (Auto) 16.4 Urine Bacteria (Auto) 563.4 Urine HCG, Qual Positive 07/23/19 13:33 RBC 4.56 MCV 88.0 MCHC 33.8 RDW 13.1 MPV 7.1 L Neutrophils % 76.4 D Lymphocytes % 15.6 D Monocytes % 5.0 Eosinophils % 2.7 Basophils % 0.3 - RADIOLOGY Radiology Studies Ordered: Category Date Time Status TRANSVAGINAL US PREG [US] Stat Ultrasound 07/23/19 15:11 Completed - Medications Given in the ED: ED Medications Discontinued Medications Generic Name Dose Route Start Last Admin Trade Name Freq PRN Reason Stop Dose Admin Acetaminophen 1,000 mg 07/23/19 13:44 07/23/19 14:14 Ofirmev Injection - IVPB 07/23/19 13:45 1,000 mg ONCE ONE Administration Sodium Chloride 1,000 mls @ 1,000 mls/hr 07/23/19 13:44 07/23/19 14:14 Normal Saline - IV 07/23/19 14:43 1,000 mls/hr ASDIR STA Administration Ondansetron HCl 4 mg 07/23/19 13:44 07/23/19 14:15 Zofran Injection IVPUSH 07/23/19 13:45 4 mg ONCE ONE Administration Discharge - Discharge Information Clinical Impression/Diagnosis: Abdominal pain - Follow up/Referral Referrals: Layne Rangel [Primary Care Provider] - - Patient Discharge Instructions - Post Discharge Activity
--- NOTE | 2019-07-23 18:13 | HP ---
Admitting History and Physical - Primary Care Physician PCP: Smooth Archer - Admission Chief Complaint: Pelvic pain History of Present Illness: Patient reports pelvic pain for 3 weeks that has progressively worsened. Today the pain was the worst and she decided to come to the ER. History Source: Patient Limitations to Obtaining History: No Limitations - Past Medical History ALGOLOGY TEACHER: No: Alzheimer's, CVA, Dementia, Migraine, Multiple Sclerosis, Peripheral Neuropathy, Parkinson's, Seizure, Syncope, TIA, Vertigo, Other Cardiovascular: No: AFIB, Aneurysm, Aortic Insufficiency, Aortic Stenosis, CAD, CHF, Deep Vein Thrombosis, HTN, Hyperlipdemia, MN, Mitral Insufficiency, Mitral Stenosis, Murmur, Pulmonary Hypertension, Other Pulmonary: Yes: Asthma. No: Bronchitis, Cancer, COPD, O2 Dependent, Pneumonia, Previously Intubated, Pulmonary Embolus, Pulmonary Fibrosis, Sleep Apnea, Other Gastrointestinal: No: Ascites, Cancer, Constipation, Crohn's Disease, Diverticulitis, Diverticulosis, Esophageal Varices, Gastritis, GERD, GI Bleed, Hemorrhoids, Hiatal Hernia, Inflamatory Bowel Disease, Irritable Bowel Disease, Pancreatitis, Peptic Ulcer Disease, Ulcerative Colitis, Other Hepatobiliary: No: Cirrhosis, Cholelithiasis, Cholecystitis, Choledocholithiasis , Hepatitis A, Hepatitis B, Hepatitis C, Other Renal/: No: Renal Failure, Renal Inusuff, BPH, Cancer, Hematuria, Hemodialysis , Neurogenic Bladder, Renal Calculi, UTI, Other Reproductive: No: Ectopic , Endometriosis, Fibroids, PID, Polycystic Ovary Syndrome, Postmenopausal, Other ...: Yes ...: 1 Heme/Onc: No: Anemia, B12 Deficiency, Bleeding Disorder, Cancer, Current Chemotherapy, Current Radiation Therapy, Hemochromatosis, Hypercoaguable State, Myeloproliferative Synd, Sickle Cell Disease, Sickle Cell Trait, Thrombocytopenia, Other Infectious Disease: No: AIDS, C-Diff, Herpes Zoster, HIV, MRSA, STD's, Tuberculosis, VREF, Other Psych: No: Addictions, Anxiety, Bipolar, Depression, Panic, Psychosis, Schizophrenia, Other Musculoskeletal: No: Bursitis, Chronic low back pain, Hemiparesis, Hemiplegia, Osteoarthritis, Paraplegia, Other Rheumatology: No: Fibromyalgia, Gout, Lupus, Rheumatoid Arthritis, Sarcoidosis, Vasculitis, Other ENT: No: Allergic Rhinitis, Sinusitis, Other Endocrine: No: Samm's Disease, Twain's Disease, Diabetes Insipidus, Diabetes Mellitus, Hyperparathyroidism, Hyperthyroidism, Hypothyroidism, Osteopenia, SIADH, Other Dermatology: No: Basal Cell, Cellulitis, Eczema, Melanoma, Psoriasis, Squamous Cell, Other - Past Surgical History Past Surgical History: Yes: Appendectomy (ruptured) - Smoking History Smoking history: Never smoked Have you smoked in the past 12 months: No Aproximately how many cigarettes per day: 0 - Alcohol/Substance Use Hx Alcohol Use: No Home Medications - Allergies Allergies/Adverse Reactions: Allergies Allergy/AdvReac Type Severity Reaction Status Date / Time peanut Allergy Verified 07/23/19 13:02 - Home Medications Home Medications: Ambulatory Orders Acetaminophen [Tylenol] 650 mg PO Q6H PRN #20 capsule MDD 5 07/23/19 Ibuprofen 600 mg PO Q6H PRN #20 tablet 07/23/19 Review of Systems Findings/Remarks: Suprapubic pain slightly improved after IV tylenol - Review of Systems Constitutional: reports: No Symptoms Eyes: reports: No Symptoms HENT: reports: No Symptoms Neck: reports: No Symptoms Cardiovascular: reports: No Symptoms Respiratory: reports: No Symptoms Gastrointestinal: reports: No Symptoms Genitourinary: reports: No Symptoms, Other (pelvic pain) Musculoskeletal: reports: No Symptoms Integumentary: reports: No Symptoms Neurological: reports: No Symptoms Endocrine: reports: No Symptoms Hematology/Lymphatic: reports: No Symptoms Psychiatric: reports: No Symptoms Physical Examination Vital Signs: Vital Signs Temperature 99.4 F 07/23/19 13:02 Pulse Rate 87 07/23/19 13:02 Respiratory Rate 16 07/23/19 13:02 Blood Pressure 116/84 07/23/19 13:02 O2 Sat by Pulse Oximetry (%) 100 07/23/19 13:02 Constitutional: Yes: Well Nourished HENT: Yes: Atraumatic Neck: Yes: Supple Cardiovascular: Yes: Regular Rate and Rhythm Respiratory: Yes: Regular Gastrointestinal: Yes: Soft, Abdomen, Obese, Other (Pronounced suprapubic tenderness to palpation, no palpable adnexal masses, no rebound, no guarding) ...Rectal Exam: Yes: WNL Renal/: Yes: WNL Breast(s): Yes: Other (deferred) Extremities: Yes: WNL Edema: Yes Integumentary: Yes: WNL Neurological: Yes: WNL ...Motor Strength: WNL Psychiatric: Yes: Alert, Oriented Labs: CBC, BMP 07/23/19 13:33 07/23/19 13:33 Imaging - Results Ultrasound: Report Reviewed Problem List - Problems (1) Ectopic Code(s): O00.90 - UNSPECIFIED ECTOPIC WITHOUT INTRAUTERINE Qualifiers: Location of ectopic : tubal Intrauterine status: without intrauterine Laterality: left Qualified Code(s): O00.102 - Left tubal without intrauterine Assessment/Plan 24 y/o G1 presenting for severe abdominal pain and complex left mass distinct from the ovary as per radiology, hcg in 800"s. Presentation suggestive of ruptured ectopic. Patient was counseled regarding suspected diagnosis and evidence of hemoperitoneum Recommendation for laparoscopy. Risks and complications of the procedure discussed at bedside. All questions answered. -proceed with urgent surgery -2nd IV access -Stat labs
[2019-07-23 18:20] LABS: BASO % 0.6 % (0-2.0); EOS % 1.9 % (0-4.5); HEMATOCRIT 40.6 % (32.4-45.2); HEMOGLOBIN 13.7 GM/dL (10.7-15.3); MCHC 33.9 g/dl (32.0-36.0); MEAN CELL VOLUME 88.4 fl (80-96); MEAN PLT VOLUME 7.1 fl (7.5-11.1); MONO % 4.8 % (3.8-10.2); NEUT % 78.7 % (42.8-82.8); PLATELET COUNT 354 K/MM3 (134-434); RBC 4.59 M/mm3 (3.60-5.2); RDW 12.9 % (11.6-15.6); WHITE BLOOD COUNT 9.5 K/mm3 (4.0-10.0)
[2019-07-23 18:42] LABS: INR 1.05 (0.83-1.09); PROTHROMBIN TIME (PATIENT) 12.4 SEC (9.7-13.0)
[2019-07-23] MEDS ORDERED: PROPOFOL 20 ML ONE ×2 (19:16)
[2019-07-23] MEDS ORDERED: MIDAZOLAM HCL 2 MG/2 ML SINGLE DOSE VIAL ONE (19:16)
[2019-07-23] MEDS ORDERED: BUPIVACAINE HCL/PF 0.5% (5 MG/ML) 30 ML VIAL IJ ONE ×2 (19:53)
[2019-07-23] MEDS ORDERED: GLYCOPYRROLATE 0.2 MG/1 ML VIAL ONE (20:51)
[2019-07-23] MEDS ORDERED: NEOSTIGMINE METHYLSULFATE 0.5 MG/ML - 10 ML MDV ONE (20:51)
[2019-07-23] MEDS ORDERED: ONDANSETRON 4 MG/2 ML VIAL IVPUSH PRN (21:30)
[2019-07-23] MEDS ORDERED: LACTATED RINGERS SOLUTION 1,000 ML IV SCH (21:30)
--- NOTE | 2019-07-23 21:57 | OP ---
Operative Note - Note: Operative Date: 07/23/19 (dic#[id number]) Pre-Operative Diagnosis: Suspected ruptured ectopic Operation: Operative laparoscopy, ovarian lesion removal Findings: see dictation Implants: none Post-Operative Diagnosis: Same as Pre-op Surgeon: Smooth Archer Shipping Clerk/Admin: Phi Calix Anesthesia: General Specimens Removed: Ovarian lesion Estimated Blood Loss (mls): 500 Operative Report Dictated: Yes
[2019-07-23] MEDS ORDERED: oxyCODONE HCL 5 MG TABLET PO PRN (22:00)
[2019-07-23 22:38] VITALS: BP 120/69; PULSE 86; TEMP 98.5
--- NOTE | 2019-07-24 17:18 | OP ---
DATE OF OPERATION: 07/23/2019 ATTENDING: Nori Myers MD PREOPERATIVE DIAGNOSIS: A 24-year-old presenting with severe abdominal pain to the ER with imaging suggestive of ruptured ectopic . POSTOPERATIVE DIAGNOSIS: A 24-year-old presenting with severe abdominal pain to the ER with imaging suggestive of ruptured ectopic , ovarian lesion. PROCEDURE: Diagnostic laparoscopy, bleeding ovarian lesion removal. SURGEON: Nori Myers MD SOLDERER PRODUCTION LINE: LUCILLE Thorpe ANESTHESIA: General. INTRAVENOUS FLUIDS: Per Anesthesia. ESTIMATED BLOOD LOSS: 500 mL including approximately 300 mL of hemoperitoneum. URINE OUTPUT: None. FINDINGS: Normal anterior wall anatomy and external genitalia. Moderate amount of subcutaneous adipose tissue. The fascia was normal in appearance. Initial intra-abdominal inspection through the laparoscope revealed no active bleeding from the point of entry or immediately on the underlying viscera. No adhesions noted. Inspection of the pelvis revealed enlarged ovary approximately measuring 6 x 5 cm on the left. Fallopian tubes and contralateral ovary were consistent with normal anatomy. Uterus was normal in appearance. The ovarian lesion was ruptured and actively bleeding with a small to moderate size clots protruding from the ruptured area. Tissue from the ovarian lesion sent to Pathology. OPERATIVE PROCEDURE: Patient was taken to the operating room where anesthesia was found to be adequate. She was prepped and draped in a normal sterile fashion. Appropriate time-out took place. Attention was re-directed to anterior abdominal wall, and no vaginal instrumentation took place. Infraumbilical skin incision was made with a scalpel to accommodate a Romain trocar. The incision was carried to the underlying fascia, and the fascia was elevated with Valarie clamps, transected with Steele scissors. Entry to the peritoneal cavity took place. The fascial incisions were anchored with 0 Polysorb, and insufflation medium was activated. Proper placement was confirmed with the laparoscope. Findings are previously mentioned. Right lower quadrant 5-mm trocar was placed under constant visualization followed by that left lower quadrant one without difficulty. The left ovary with the lesion was elevated and its ruptured aspect extended with the LigaSure instrument following failed attempts to neutralize the bleeding with cautery. Bleeding area evacuated of all clots with atraumatic tenaculum grasper. Profuse bleeding not respondent to cautery noted. Bleeding lesion excised and excellent hemostasis noted. Copious irrigation took place. All bleeding and tissue from the pelvis was suctioned out. Approximately 2 x 3 lesion specimen was placed in an Endobag and retrieved. No active bleeding from the ovary noted on secondary inspection and all insufflating media evacuated from the abdomen. All trocars were removed. No active bleeding was noted from incision sites. The infraumbilical incision was reapproximated with the previously anchored 0 Polysorb stitches. Skin incision was reapproximated with subcuticular sutures. Excellent reapproximation achieved. Patient tolerated the procedure well. Is going to the recovery room. Instrument count was reported as correct x2. NORI MYERS MD [id number] MTDD
--- NOTE | 2019-07-25 18:35 | PATH ---
Surgical Pathology Report Patient Name: MARTHA MCCONNELL Med. Rec. #: [id number] /Age/Gender: 1995 (Age: 24) / F Account: [id number] Location: AMBULATORY SURG Taken: 07/23/2019 Received: 07/24/2019 Reported: 07/25/2019 Physicians: Smooth Archer MD Specimen(s) Received SUSPECTED OVARIAN ECTOPIC Clinical History Ectopic Final Diagnosis LEFT OVARIAN LESION, SUSPECTED OVARIAN ECTOPIC , EXCISION: FRAGMENTS OF CORPUS LUTEUM WITH HEMORRHAGE. NO CHORIONIC VILLI IDENTIFIED. Comment: Findings may represent a hemorrhagic corpus luteum cyst. Suggest clinical correlation. Electronically Signed Columba Flores M.D. Gross Description Received in formalin labeled "suspected ovarian ectopic ," is a 3.4 x 2.2 x 0.6 cm ortega, focally hemorrhagic portion of soft tissue. No definitive villous tissue or somatic tissue is identified. The specimen is serially sectioned and entirely submitted in 3 cassettes. /07/24/[address] [facility]07/24/2019
== END 2019-07-23 23:53 | disposition home or self-care (01) ==
LOC: JER 12:51 → JASUSAT 18:07 → JASU-SURG 18:07 → J3W 22:36 → JASUSAT 23:53
PROVIDERS: ATTEND Student in an Organized Health Care Education/Training Program
PROC: 10T24ZZ Resection of Products of Conception, Ectopic, Percutaneous Endoscopic Approach (ICD-10-PCS; principal; 2019-07-23 19:35)
DX: O00.102 Left tubal pregnancy without intrauterine pregnancy (principal)
CPT/HCPCS: 36415; 76817-TC; 80053; 81003; 84702; 84703; 85025; 85610; 86850; 86900; 86901; 87077; 87086; 88305-TC; 94760; 99285-25; J0131; J7030

== ENCOUNTER 2019-07-24 02:09 | Emergency (ER) | payer OTHER ==
[2019-07-24 02:31] VITALS: BP 114/62; PULSE 79; TEMP 98.1; BMI 28.3
--- NOTE | 2019-07-24 03:36 | PDOC ---
Attending Attestation - Resident Resident Name: Sandy Roche - ED Attending Attestation I have performed the following: I have examined & evaluated the patient, The case was reviewed & discussed with the resident, I agree w/resident's findings & plan - HPI HPI: 07/24/19 04:32 see resident hpi - Physicial Exam PE: 07/24/19 04:32 see resident exam - Medical Decision Making 07/24/19 04:33 24-year-old female with oozing from a recent laparoscopic surgical wound just distal to the umbilicus Call placed to patient's DIRECTOR OF OUTREACH surgeon who recommends re-gluing and Steri stripping Wound repaired by emergency department resident
--- NOTE | 2019-07-24 03:44 | PDOC ---
History of Present Illness - General Chief Complaint: Revisit,Wound Recheck Stated Complaint: WOUND RECHECK Time Seen by Provider: 07/24/19 03:28 History Source: Patient Exam Limitations: No Limitations - History of Present Illness Initial Comments: 24 year old female with PMH ectopic with recent laproscopic ovarian lesion removal (07/23/19) presented to ED for wound dehisence of her abdominal surgical site today. Pt reported she coughed and then the bottom portion of the surgical wound to her middle abdomen burst open and bled. She reported the bleeding stopped spontaneously, but she felt that the wound needed to be closed , prompting her to come to the ED. Pt denied abdominal pain, fever, redness, nausea, vomiting, lightheadedness, chest pain, shortness of breath. ROS General: denied fever, chills, generalized weakness. HEENT: denied sore throat, rhinorrhea, ear pain. Cardiovascular: denied chest pain, palpitations, syncope, diaphoresis. Respiratory: denied shortness of breath, cough, sputum production, hemoptysis. Gastrointestinal: denied abdominal pain, nausea, vomiting, diarrhea, constipation, blood in stool. Genitourinary: denied dysuria, increased urinary frequency, hematuria, urinary incontinence, flank pain. Back: denied back pain. Musculoskeletal: denied joint pain, muscle pain, joint swelling. Neurological: denied headache, dizziness, numbness, tingling, weakness. Integumentary: admitted to wound dehiscence. denied rash, laceration, abrasion. Hematologic/Lymphatic: denied bruising or bleeding. PE Constitutional: Well-nourished, Well-developed, appearing stated age. HEENT: head is normocephalic, atraumatic. EOMI. PERRLA. Neck: supple. Full ROM. Cardiovascular: regular heart rhythm. Normal S1 and S2. no murmurs. no pericardial friction rub. Respiratory: clear to auscultation bilaterally. no crackles, rhonchi or wheezing. no stridor. Gastrointestinal: soft, flat, nontender. normal bowel sounds. no rebound, guarding, or masses. Abdomen: 1 cm area of wound dehescience noted to the inferior portion of the surgical closure site to the umbilicus, dried blood noted to gauze, no active bleeding, no gross contamination. Extremities: peripheral pulses intact and equal. no lower extremity edema noted. Neurological: CN 2-12 grossly intact. moves all four extremities. Psych: awake, alert, oriented x3. follows commands. answers questions appropriately. Past History - Past Medical History Allergies/Adverse Reactions: Allergies Allergy/AdvReac Type Severity Reaction Status Date / Time peanut Allergy Verified 07/24/19 02:31 Home Medications: Ambulatory Orders Acetaminophen [Tylenol] 650 mg PO Q6H PRN #20 capsule MDD 5 07/23/19 Ibuprofen 600 mg PO Q6H PRN #20 tablet 07/23/19 - Immunization History Immunization Up to Date: Yes - Psycho Social/Smoking Cessation Hx Smoking History: Never smoked Have you smoked in the past 12 months: No Number of Cigarettes Smoked Daily: 0 Hx Alcohol Use: No Drug/Substance Use Hx: No Substance Use Type: None, Marijuana *Physical Exam - Vital Signs Last Vital Signs Temp Pulse Resp BP Pulse Ox 98.1 F 79 20 114/62 97 07/24/19 02:27 07/24/19 02:27 07/24/19 02:27 07/24/19 02:27 07/24/19 02:27 Medical Decision Making - Medical Decision Making 24 year old female with above PMH presented to ED for wound dehiscence. Initial Vital Signs Temp Pulse Resp BP Pulse Ox 98.1 F 79 20 114/62 97 07/24/19 02:27 07/24/19 02:27 07/24/19 02:27 07/24/19 02:27 07/24/19 02:27 Afebrile. No tachycardia. No tachypnea. No hypotension. No hypoxia on room air. Labs ordered: none Imaging ordered: none Medications ordered: none Dr. Archer pagenicola, he advised dermabonding wound and he will evaluate pt at her appointment on Tuesday. 07/24/19 03:58 Wound repaired with dermabond after normal saline irrigation under pressure. See procedure note. Pt discharged. Informed to F/U with Dr. Archer at her appointment on Tuesday. Pt agreed with plan for care. Discharge - Discharge Information Problems reviewed: Yes Clinical Impression/Diagnosis: Wound dehiscence Condition: Improved Disposition: HOME - Admission No - Follow up/Referral Referrals: Layne Rangel [Primary Care Provider] - Smooth Archer MD [Staff Physician] - - Patient Discharge Instructions Patient Printed Discharge Instructions: DI for Wound Dehiscence Additional Instructions: Follow up with your OBGYN who performed your surgery on Tuesday at your appointment. -Follow their instructions for post-surgery Return to the Emergency Department for fever, increasing pain, chest pain, shortness of breath, vomiting, lightheadedness, or any other new, worsening or concerning symptoms. - Post Discharge Activity Work/Back to School Note: Back to Work Laceration/Wound Repair - Laceration/Wound Repair Abdomen Wound Location: Infraumbilical Wound Length (cm): 1 Depth, Shape: superficial Irrigated w/ Saline: Yes Betadine Prep: No Wound Repaired With: Dermabond Remarks: Pt tolerate procedure well. Dermabond was allowed to dry, then wound was covered with gauze. Pt informed to keep wound 100% dry and to not apply any creams/lotions to site.
== END 2019-07-24 04:48 | disposition home or self-care (01) ==
LOC: JER 02:09
PROC: 0HQ7XZZ Repair Abdomen Skin, External Approach (ICD-10-PCS; principal; 2019-07-24)
DX: T81.31XA Disruption of external operation (surgical) wound, not elsewhere classified, initial encounter (principal)
CPT/HCPCS: 12020; 99282-25

== ENCOUNTER 2021-04-14 15:25 | Emergency (ER) | payer OTHER ==
[2021-04-14 15:39] VITALS: BMI 32.8
[2021-04-14] MEDS ORDERED: DEXAMETHASONE 4 MG TABLET (FP) PO ONE (15:44)
[2021-04-14] MEDS ORDERED: diphenhydrAMINE HCL 25 MG CAPSULE (FP) PO ONE ×2 (15:44→15:59)
[2021-04-14] MEDS ORDERED: DEXAMETHASONE 4 MG TABLET (FP) ONE (15:58)
[2021-04-14] MEDS ORDERED: FAMOTIDINE 10 MG TABLET PO ONE (16:21)
[2021-04-14] MEDS ORDERED: FAMOTIDINE 10 MG TABLET ONE (17:13)
[2021-04-14 18:17] VITALS: BP 115/74; PULSE 83; TEMP 97.8
== END 2021-04-14 18:17 | disposition home or self-care (01) ==
LOC: JER 15:25
DX: K13.0 Diseases of lips (principal); J39.2 Other diseases of pharynx; T78.40XA Allergy, unspecified, initial encounter
CPT/HCPCS: 99283-25

== ENCOUNTER 2021-08-17 19:13 | Emergency (ER) | payer OTHER ==
[2021-08-17 19:36] VITALS: BP 123/78; PULSE 100; TEMP 98.5; BMI 29.2
== END 2021-08-17 20:55 | disposition home or self-care (01) ==
LOC: JERFT 19:13
DX: K02.9 Dental caries, unspecified (principal)
CPT/HCPCS: 99281-25

== ENCOUNTER 2021-12-14 13:28 | Emergency (ER) | payer OTHER ==
[2021-12-14 13:41] VITALS: BP 122/73; PULSE 97; TEMP 98.3; BMI 36.8
[2021-12-14] MEDS ORDERED: KETOROLAC TROMETHAMINE 30 MG/1 ML VIAL IM ONE (14:35)
[2021-12-14] MEDS ORDERED: CYCLOBENZAPRINE HCL 10 MG TABLET (FP) PO ONE (14:35)
[2021-12-14] MEDS ORDERED: KETOROLAC TROMETHAMINE 30 MG/1 ML VIAL ONE (15:15)
[2021-12-14] MEDS ORDERED: CYCLOBENZAPRINE HCL 10 MG TABLET (FP) ONE (15:15)
[2021-12-14] MEDS ORDERED: IBUPROFEN 600 MG TABLET (FP) PO ONE ×2 (15:21→15:26)
== END 2021-12-14 16:19 | disposition home or self-care (01) ==
LOC: JERFT 13:28
PROC: 3E0233Z Introduction of Anti-inflammatory into Muscle, Percutaneous Approach (ICD-10-PCS; principal; 2021-12-14)
DX: R07.82 Intercostal pain (principal); M54.50 Low back pain, unspecified
CPT/HCPCS: 71046-TC-FY; 71101-TC-LT-FY; 93005; 93010; 99285-25

== ENCOUNTER 2022-03-27 13:19 | Emergency (ER) | payer OTHER ==
[2022-03-27 13:35] VITALS: BP 116/70; PULSE 117; RESP 19; TEMP 99.4; BMI 31.8
[2022-03-27] MEDS ORDERED: DEXAMETHASONE LIQUID 0.5 MG/5 ML PO ONE (15:26)
[2022-03-27] MEDS ORDERED: ACETAMINOPHEN 325 MG TABLET (FP) PO ONE (15:26)
[2022-03-27] MEDS ORDERED: DEXAMETHASONE SOD PHOSPHATE 10 MG/1 ML VIAL ONE (15:29)
[2022-03-27] MEDS ORDERED: ACETAMINOPHEN 325 MG TABLET (FP) ONE (15:29)
== END 2022-03-27 17:24 | disposition home or self-care (01) ==
LOC: JER 13:19
DX: U07.1 COVID-19 (principal); R06.02 Shortness of breath; R05.1 Acute cough
CPT/HCPCS: 71046-TC-FY; 99283-25

== ENCOUNTER 2022-05-22 08:28 | Emergency (ER) | payer OTHER ==
[2022-05-22 08:54] VITALS: BP 109/72; PULSE 57; RESP 18; TEMP 98; BMI 31.8
[2022-05-22] MEDS ORDERED: predniSONE 20 MG TABLET (UD) PO ONE (08:56)
[2022-05-22] MEDS ORDERED: diphenhydrAMINE HCL 25 MG CAPSULE (FP) PO ONE ×2 (08:56→09:40)
[2022-05-22] MEDS ORDERED: FAMOTIDINE 20 MG TABLET PO ONE (08:56)
[2022-05-22] MEDS ORDERED: predniSONE 20 MG TABLET (UD) ONE (09:40)
[2022-05-22] MEDS ORDERED: FAMOTIDINE 20 MG TABLET ONE (09:40)
== END 2022-05-22 11:43 | disposition home or self-care (01) ==
LOC: JER 08:28
DX: T78.40XA Allergy, unspecified, initial encounter (principal)
CPT/HCPCS: 99283-25

== ENCOUNTER 2022-07-12 12:48 | Emergency (ER) | payer OTHER ==
[2022-07-12 12:56] VITALS: BP 118/75; PULSE 89; RESP 17; TEMP 98.1; BMI 38.4
[2022-07-12 14:48] LABS: PH,URINE 5.5 (5.0-8.0); URINE APPEARANCE CLEAR; URINE BILIRUBIN NEGATIVE (NEGATIVE); URINE COLOR YELLOW; URINE GLUCOSE (UA) NEGATIVE (NEGATIVE); URINE KETONE TRACE (NEGATIVE); URINE LEUK ESTERASE NEGATIVE (NEGATIVE); URINE NITRITE NEGATIVE (NEGATIVE); URINE PROTEIN NEGATIVE (NEGATIVE)
[2022-07-12] MEDS ORDERED: ACETAMINOPHEN 325 MG TABLET (FP) PO ONE (14:58)
[2022-07-12] MEDS ORDERED: ACETAMINOPHEN 325 MG TABLET (FP) ONE (15:12)
[2022-07-12 15:15] LABS: BASO % 0.6 % (0-2.0); EOS % 5.6 % (0-4.5); HEMATOCRIT 41.7 % (32.4-45.2); HEMOGLOBIN 14.3 GM/dL (10.7-15.3); LYMPH % 15.1 % (8-40); MCH 30.1 pg (25.7-33.7); MCHC 34.3 g/dl (32.0-36.0); MEAN CELL VOLUME 87.9 fl (80-96); MEAN PLT VOLUME 7.7 fl (7.5-11.1); MONO % 6.1 % (3.8-10.2); NEUT % 72.6 % (42.8-82.8); PLATELET COUNT 317 10^3/uL (134-434); RBC 4.75 M/mm3 (3.60-5.2); RDW 13.3 % (11.6-15.6); WHITE BLOOD COUNT 7.4 K/mm3 (4.0-10.0)
[2022-07-12 15:35] LABS: CALCIUM 9.3 mg/dL (8.5-10.1)
[2022-07-12 15:36] LABS: ALBUMIN 4.2 g/dl (3.4-5.0); BLOOD UREA NITROGEN 11.7 mg/dL (7-18)
[2022-07-12 15:39] LABS: CREATININE 0.7 mg/dL (0.55-1.3)
[2022-07-12 15:40] LABS: BILIRUBIN,TOTAL 0.9 mg/dL (0.2-1)
[2022-07-12 15:41] LABS: TOT PROT 7.6 g/dl (6.4-8.2)
== END 2022-07-12 19:29 | disposition home or self-care (01) ==
LOC: JER 12:48
DX: R10.84 Generalized abdominal pain (principal)
CPT/HCPCS: 36415; 76830-TC; 80053; 81003; 83690; 84703; 85025; 87086; 99284-25

== ENCOUNTER 2022-08-31 13:48 | Emergency (ER) | payer OTHER ==
[2022-08-31 14:06] VITALS: BP 117/72; PULSE 102; RESP 18; TEMP 98.9; BMI 38.4
== END 2022-08-31 15:29 | disposition home or self-care (01) ==
LOC: JERFT 13:48
DX: H10.89 Other conjunctivitis (principal); L03.213 Periorbital cellulitis
CPT/HCPCS: 99281-25

== ENCOUNTER 2023-02-01 13:51 | Emergency (ER) | payer OTHER ==
[2023-02-01 14:11] VITALS: BP 111/74; PULSE 94; RESP 18; TEMP 97; BMI 38.9
[2023-02-01] MEDS ORDERED: ACETAMINOPHEN 325 MG TABLET (FP) PO ONE (14:22)
[2023-02-01] MEDS ORDERED: IBUPROFEN 600 MG TABLET (FP) PO ONE ×2 (14:22→15:01)
[2023-02-01] MEDS ORDERED: ACETAMINOPHEN 325 MG TABLET (FP) ONE (15:01)
== END 2023-02-01 16:23 | disposition home or self-care (01) ==
LOC: JER 13:51
DX: S93.402A Sprain of unspecified ligament of left ankle, initial encounter (principal); M25.562 Pain in left knee; R22.42 Localized swelling, mass and lump, left lower limb; M25.572 Pain in left ankle and joints of left foot; W10.8XXA Fall (on) (from) other stairs and steps, initial encounter; X50.1XXA Overexertion from prolonged static or awkward postures, initial encounter; Y99.0 Civilian activity done for income or pay
CPT/HCPCS: 73560-TC-LT-FY; 73610-TC-LT-FY; 73630-TC-LT; 99283-25

== ENCOUNTER 2023-05-31 08:53 | Emergency (ER) | payer OTHER ==
[2023-05-31 09:11] VITALS: BP 110/83; PULSE 103; RESP 20; TEMP 98.8; BMI 38.9
[2023-05-31] MEDS ORDERED: ONDANSETRON 4 MG/2 ML VIAL IVPUSH ONE (10:09)
[2023-05-31] MEDS ORDERED: ACETAMINOPHEN 1000 MG/100 ML BAG IVPB ONE (10:09)
[2023-05-31] MEDS ORDERED: SODIUM CHLORIDE 0.9% 500 ML INFUS.BAG IV ONE (10:09)
[2023-05-31] MEDS ORDERED: ONDANSETRON 4 MG/2 ML VIAL ONE (10:13)
[2023-05-31] MEDS ORDERED: ACETAMINOPHEN INJECTION 100 ML IVPB ONE (10:13)
[2023-05-31 10:39] LABS: BASO % 0.7 % (0-2.0); EOS % 12.6 % (0-4.5); HEMATOCRIT 41.1 % (32.4-45.2); HEMOGLOBIN 13.8 GM/dL (10.7-15.3); LYMPH % 20.3 % (8-40); MCHC 33.6 g/dl (32.0-36.0); MEAN CELL VOLUME 86.3 fl (80-96); MEAN PLT VOLUME 7.1 fl (7.5-11.1); MONO % 6.6 % (3.8-10.2); NEUT % 59.8 % (42.8-82.8); PLATELET COUNT 332 10^3/uL (134-434); RBC 4.77 M/mm3 (3.60-5.2); RDW 13.8 % (11.6-15.6); WHITE BLOOD COUNT 7.7 K/mm3 (4.0-10.0)
[2023-05-31 10:40] LABS: URINE APPEARANCE CLEAR; URINE BILIRUBIN NEGATIVE (NEGATIVE); URINE COLOR YELLOW; URINE GLUCOSE (UA) NEGATIVE (NEGATIVE); URINE KETONE NEGATIVE (NEGATIVE); URINE LEUK ESTERASE NEGATIVE (NEGATIVE); URINE NITRITE NEGATIVE (NEGATIVE); URINE PROTEIN NEGATIVE (NEGATIVE); URINE UROBILINOGEN 0.2 mg/dL (0.2-1.0)
[2023-05-31 10:46] LABS: INR 1.09 (0.83-1.09); PROTHROMBIN TIME (PATIENT) 12.6 SEC (9.7-13.0)
[2023-05-31 10:48] LABS: ACTIVATED PTT 32.7 SECONDS (25.2-36.5)
[2023-05-31 11:08] LABS: CHLORIDE 110 mmol/L (98-107); SODIUM 140 mmol/L (136-145)
[2023-05-31 11:10] LABS: CALCIUM 9.2 mg/dL (8.5-10.1)
[2023-05-31 11:11] LABS: ALBUMIN 3.8 g/dl (3.4-5.0); ANION GAP 5 mmol/L (4-13); BLOOD UREA NITROGEN 11.3 mg/dL (7-18); CO2 25 mmol/L (21-32); GLUCOSE,RANDOM 81 mg/dL (74-106); MAGNESIUM 2.4 mg/dL (1.8-2.4)
[2023-05-31 11:14] LABS: CREATININE 0.7 mg/dL (0.55-1.3); SGOT/AST 19 U/L (15-37); SGPT/ALT 31 U/L (13-61)
[2023-05-31 11:15] LABS: BILIRUBIN,TOTAL 1.2 mg/dL (0.2-1); TOT PROT 6.9 g/dl (6.4-8.2)
[2023-05-31 11:17] LABS: ALK PHOS 68 U/L (45-117)
[2023-05-31] MEDS ORDERED: KETOROLAC TROMETHAMINE 15 MG/ML VIAL IVPUSH ONE (16:26)
[2023-05-31] MEDS ORDERED: KETOROLAC TROMETHAMINE 15 MG/ML VIAL ONE (16:35)
== END 2023-05-31 16:54 | disposition home or self-care (01) ==
LOC: JER 08:53
PROC: 3E033GC Introduction of Other Therapeutic Substance into Peripheral Vein, Percutaneous Approach (ICD-10-PCS; principal; 2023-05-31)
PROC: 3E0333Z Introduction of Anti-inflammatory into Peripheral Vein, Percutaneous Approach (ICD-10-PCS; 2023-05-31)
PROC: 3E033NZ Introduction of Analgesics, Hypnotics, Sedatives into Peripheral Vein, Percutaneous Approach (ICD-10-PCS; 2023-05-31)
DX: R10.32 Left lower quadrant pain (principal); R10.2 Pelvic and perineal pain
CPT/HCPCS: 36415; 74177-TC; 76830-TC; 80053; 81003; 83735; 84702; 85025; 85610; 85730; 86850; 86900; 86901; 87086; 99285-25; Q9967

== ENCOUNTER 2024-01-20 10:11 | Emergency (ER) | payer OTHER ==
[2024-01-20 10:24] VITALS: BP 126/76; PULSE 97; RESP 18; TEMP 98.5; BMI 40.7
[2024-01-20] MEDS ORDERED: DEXAMETHASONE SOD PHOSPHATE 10 MG/1 ML VIAL ONE (11:19)
[2024-01-20] MEDS: DEXAMETHASONE SOD PHOSPHATE 10 MG/1 ML VIAL PO ONE (11:22)
[2024-01-20] MEDS ORDERED: EPINEPHrine 1:1,000 0.3 MG/0.3 ML SYR IM ONE (11:30)
== END 2024-01-20 12:20 | disposition home or self-care (01) ==
LOC: JER 10:11
DX: R22.0 Localized swelling, mass and lump, head (principal); T78.1XXA Other adverse food reactions, not elsewhere classified, initial encounter
CPT/HCPCS: 99283-25; J1100

== ENCOUNTER 2024-02-27 07:36 | Emergency (ER) | payer OTHER ==
[2024-02-27 07:52] VITALS: BP 115/67; PULSE 93; RESP 24; TEMP 98.8; BMI 40.7
[2024-02-27] MEDS ORDERED: methylPREDNISolone NA SUCC 125 MG/2 ML VIAL ONE (08:09)
[2024-02-27] MEDS ORDERED: FAMOTIDINE 20 MG/50 ML IVPB 20 MG/50 ML MG IVPB ONE (08:09)
[2024-02-27] MEDS: methylPREDNISolone NA SUCC 125 MG/2 ML VIAL IVPUSH ONE (08:30)
[2024-02-27] MEDS: methylPREDNISolone NA SUCC 125 MG/2 ML VIAL IVPB ONE (08:38)
[2024-02-27] MEDS: FAMOTIDINE 20 MG/50 ML IVPB 20 MG/50 ML MG IVPB ONE (08:39)
[2024-02-27 08:46] LABS: BASO % 0.4 % (0-2.0); EOS % 2.8 % (0-4.5); HEMATOCRIT 41.8 % (32.4-45.2); LYMPH % 22.7 % (8-40); MCH 28.8 pg (25.7-33.7); MCHC 33.6 g/dl (32.0-36.0); MEAN CELL VOLUME 85.8 fl (80-96); MONO % 5.8 % (3.8-10.2); NEUT % 68.3 % (42.8-82.8); PLATELET COUNT 302 10^3/uL (134-434); RBC 4.87 M/mm3 (3.60-5.2); RDW 13.4 % (11.6-15.6); WHITE BLOOD COUNT 7.6 K/mm3 (4.0-10.0)
[2024-02-27 09:00] LABS: POTASSIUM 3.9 mmol/L (3.5-5.1)
[2024-02-27 09:01] LABS: CALCIUM 9.1 mg/dL (8.5-10.1)
[2024-02-27 09:02] LABS: BLOOD UREA NITROGEN 10.6 mg/dL (7-18)
[2024-02-27 09:05] LABS: CREATININE 0.7 mg/dL (0.55-1.3)
== END 2024-02-27 10:55 | disposition home or self-care (01) ==
LOC: JER 07:36
PROC: 3E033GC Introduction of Other Therapeutic Substance into Peripheral Vein, Percutaneous Approach (ICD-10-PCS; principal; 2024-02-27)
PROC: 3E033GC Introduction of Other Therapeutic Substance into Peripheral Vein, Percutaneous Approach (ICD-10-PCS; 2024-02-27)
PROC: 3E033GC Introduction of Other Therapeutic Substance into Peripheral Vein, Percutaneous Approach (ICD-10-PCS; 2024-02-27)
DX: R21 Rash and other nonspecific skin eruption (principal); L29.9 Pruritus, unspecified; R42 Dizziness and giddiness; R20.2 Paresthesia of skin; K13.0 Diseases of lips
CPT/HCPCS: 36415; 80048; 84703; 85025; 99284-25

== ENCOUNTER 2024-06-28 05:54 | Emergency (ER) | payer OTHER ==
[2024-06-28 06:05] VITALS: BP 123/77; PULSE 86; RESP 20; TEMP 97.7; BMI 40.7
[2024-06-28] MEDS ORDERED: ACETAMINOPHEN 325 MG TABLET (FP) ONE (06:26)
[2024-06-28] MEDS ORDERED: IBUPROFEN 400 MG TABLET (FP) PO ONE (06:26)
[2024-06-28] MEDS: IBUPROFEN 400 MG TABLET (FP) PO ONE (06:34)
[2024-06-28] MEDS: ACETAMINOPHEN 325 MG TABLET (FP) PO ONE (06:34)
[2024-06-28] MEDS ORDERED: METOCLOPRAMIDE HCL INJECTION 10 MG/2 ML VIAL ONE (07:17)
[2024-06-28] MEDS: METOCLOPRAMIDE HCL INJECTION 10 MG/2 ML VIAL IVPB ONE (08:19)
[2024-06-28] MEDS: SODIUM CHLORIDE 0.9% 500 ML INFUS.BAG IV ONE (08:19)
[2024-06-28 08:44] LABS: BASO % 0.8 % (0-2.0); EOS % 4.2 % (0-4.5); HEMATOCRIT 44.1 % (32.4-45.2); HEMOGLOBIN 15.1 GM/dL (10.7-15.3); LYMPH % 20.2 % (8-40); MCH 29.5 pg (25.7-33.7); MCHC 34.3 g/dl (32.0-36.0); MEAN CELL VOLUME 86.1 fl (80-96); MEAN PLT VOLUME 8.2 fl (7.5-11.1); MONO % 5.7 % (3.8-10.2); NEUT % 69.1 % (42.8-82.8); PLATELET COUNT 327 10^3/uL (134-434); RBC 5.12 M/mm3 (3.60-5.2); RDW 13.3 % (11.6-15.6); WHITE BLOOD COUNT 9.4 K/mm3 (4.0-10.0)
[2024-06-28 08:49] LABS: ACTIVATED PTT 22.4 SECONDS (25.2-36.5); INR 0.94 (0.83-1.09); PROTHROMBIN TIME (PATIENT) 10.6 SEC (9.7-13.0)
[2024-06-28 08:58] LABS: POTASSIUM 4.4 mmol/L (3.5-5.1)
[2024-06-28 08:59] LABS: CALCIUM 9.9 mg/dL (8.5-10.1)
[2024-06-28 09:00] LABS: ALBUMIN 4.1 g/dl (3.4-5.0); BLOOD UREA NITROGEN 15.4 mg/dL (7-18)
[2024-06-28 09:03] LABS: CREATININE 0.7 mg/dL (0.55-1.3)
[2024-06-28 09:05] LABS: TOT PROT 7.2 g/dl (6.4-8.2)
== END 2024-06-28 12:12 | disposition home or self-care (01) ==
LOC: JER 05:54
PROC: 3E033GC Introduction of Other Therapeutic Substance into Peripheral Vein, Percutaneous Approach (ICD-10-PCS; principal; 2024-06-28)
DX: R51.9 Headache, unspecified (principal); Z20.822 Contact with and (suspected) exposure to COVID-19
CPT/HCPCS: 0241U-QW; 36415; 70450-TC; 80053; 84703; 85025; 85610; 85730; 99284-25

== ENCOUNTER 2025-03-15 12:16 | Emergency (ER) | payer OTHER ==
[2025-03-15 12:20] VITALS: BP 124/68; PULSE 87; RESP 20; TEMP 98.1; BMI 40.7
[2025-03-15] MEDS ORDERED: ACETAMINOPHEN INJECTION 100 ML ONE (14:14)
[2025-03-15] MEDS ORDERED: ONDANSETRON 4 MG/2 ML VIAL ONE (14:15)
[2025-03-15] MEDS: SODIUM CHLORIDE 0.9% 500 ML INFUS.BAG IV ONE (14:20)
[2025-03-15] MEDS: ACETAMINOPHEN 1000 MG/100 ML BAG IVPB ONE (14:21)
[2025-03-15] MEDS: ONDANSETRON 4 MG/2 ML VIAL IVPUSH ONE (14:22)
[2025-03-15 14:45] LABS: ABSOLUTE IMMATURE GRANULOCYTES 0.04 x10^3/uL (0.0-0.031); BASOPHILS # 0.04 x10^3/uL (0.01-0.08); EOSINOPHIL % 4.6 % (0.7-5.8); EOSINOPHILS # 0.47 x10^3/uL (0.04-0.36); MCHC 33.0 g/dl (32.2-35.5); MEAN CELL VOLUME 88.6 fl (79.4-94.8); MEAN PLT VOLUME 8.9 fl (9.4-12.3); MONOCYTE # 0.48 x10^3/uL (0.24-0.86); MONOCYTE % 4.7 % (4.7-12.5); RDW 12.3 % (12.1-16.5)
[2025-03-15 14:57] LABS: GLUCOSE,RANDOM 81.0 mg/dL (74-106); TOT PROT 7.6 g/dl (6.4-8.2)
[2025-03-15 14:58] LABS: CO2 25.0 mmol/L (21-32)
[2025-03-15 15:00] LABS: ALK PHOS 69.0 U/L (40-150)
[2025-03-15 15:03] LABS: CREATININE 0.6 mg/dL (0.55-1.3); SGOT/AST 35.0 U/L (5-34); SGPT/ALT 51.0 U/L (0-55)
[2025-03-15 15:24] LABS: HCV DIAGNOSTIC IN-HOUSE W/RFLX NON-REACTIVE (NONREACTIVE); HIV INTERPRETATION NEGATIVE (NEGATIVE)
[2025-03-15 15:44] LABS: URINE APPEARANCE CLEAR; URINE BILIRUBIN NEGATIVE (NEGATIVE); URINE COLOR YELLOW; URINE GLUCOSE (UA) NEGATIVE (NEGATIVE); URINE KETONE NEGATIVE (NEGATIVE); URINE LEUK ESTERASE NEGATIVE (NEGATIVE); URINE NITRITE NEGATIVE (NEGATIVE); URINE PROTEIN NEGATIVE (NEGATIVE); URINE UROBILINOGEN 0.2 mg/dL (0.2-1.0)
[2025-03-15 15:47] LABS: HCG,QUALITATIVE URINE Negative
[2025-03-15] MEDS ORDERED: MAG HYDROX/AL HYDROX/SIMETH 30 ML UNIT-DOSE CUP ONE (17:30)
[2025-03-15] MEDS: MAG HYDROX/AL HYDROX/SIMETH 30 ML UNIT-DOSE CUP PO ONE (17:34)
== END 2025-03-15 17:41 | disposition home or self-care (01) ==
LOC: JER 12:16
PROC: 3E033NZ Introduction of Analgesics, Hypnotics, Sedatives into Peripheral Vein, Percutaneous Approach (ICD-10-PCS; principal; 2025-03-15)
PROC: 3E033GC Introduction of Other Therapeutic Substance into Peripheral Vein, Percutaneous Approach (ICD-10-PCS; 2025-03-15)
DX: R10.33 Periumbilical pain (principal); R11.0 Nausea
CPT/HCPCS: 36415; 74177-TC; 80053; 81003; 83690; 84703; 85025; 86803; 87086; 87389; 99285-25; Q9967